=== PATIENT | male | born 1960 | race Caucasian/White ===

== ENCOUNTER 2016-06-26 15:27 | Emergency (ER) ==
[2016-06-26 15:43] VITALS: BP 131/85; TEMP 98.3; BMI 25.7
--- NOTE | 2016-06-26 16:28 | ED.PDOC ---
General ED Provider: Dr. CARLOS A NICE JR Chief Complaint: Chest Wall Injury/Pain Stated Complaint: sittiing at home, ribs made his heart hurt. neurogenic bladder makes heart hurt too. not to stop medication until blood work back, he ran out of Pravastatin. cannot afford to get all of his meds filled 98.3 69 16 96% 131/85 8/10 ETOH: 4 beers, and 1/2 pint whiskey - sitting at home, and he stated left sided chest pain started - worse with deep breath - pain level fluctuates. Pt stated he had several broken ribs on the left side 3 years ago. Time Seen by Physician: 16:28 Mode of Arrival: Ambulance Information Source: Patient Exam Limitations: No limitations Primary Care Provider: SOFIA QUIROGA Nursing and Triage Documentation Reviewed and Agree: No Review of Systems - Review Of Systems Constitutional: Reports: Malaise, Weakness Eyes: Reports: No symptoms Ears, Nose, Mouth, Throat: Reports: No symptoms Respiratory: Reports: No symptoms Cardiac: Reports: Chest pain GI: Reports: No symptoms : Reports: No symptoms Musculoskeletal: Reports: No symptoms Skin: Reports: No symptoms Neurological: Reports: No symptoms Endocrine: Reports: No symptoms Hematologic/Lymphatic: Reports: No symptoms All Other Systems: Other Past Medical History - Past Medical History Endocrine: Reports: Dyslipidemia Cardiovascular: Reports: Hypertension Respiratory: Reports: None Hematological: Reports: None Gastrointestinal: Reports: None Genitourinary: Reports: None, Unknown (urinary retention) Neuro/Psych: Reports: None Musculoskeletal: Reports: Back Pain, Other (KNEE EFFUSION IN PAST) Cancer: Reports: None Other Pertinent Past Medical History: mplanted device rt back for neurogenic bladder - Surgical History General Surgical History: Reports: Other (mplanted device rt back for neurogenic bladder), Unknown - Family History Family History: Reports: Unknown - Social History Smoking Status: Current every day smoker, Heavy tobacco smoker Hx Substance Use: No Alcohol Screening: Heavy - Immunizations Tetanus Shot up to Date: No Physical Exam - Physical Exam Appearance: Ill-appearing, Thin Pain Distress: Moderate Eyes: WARREN, EOMI, Conjunctiva clear ENT: Ears normal, Nose normal, Oropharynx normal Neck: Supple Respiratory: Airway patent, Breath sounds equal, Respirations nonlabored, Rhonchi, Wheezes Cardiovascular: RRR, Pulses normal, No rub, No murmur GI/: Soft, Nontender, No masses, Bowel sounds normal Musculoskeletal: Normal strength, ROM intact, No edema, No calf tenderness ( tender lef chest wall [id number] mid axillary line) Skin: Warm, Dry, Normal color Neurological: Sensation intact, Motor intact, Reflexes intact, Cranial nerves intact, Alert, Oriented Psychiatric: Affect appropriate, Mood appropriate Interpretation - Radiology Interpretation Radiology Interpretation By: Radiologist Radiology Results: No acute changes Exam Interpreted: CXR - EKG Interpretation Time of EKG #1: 16:30 Rate: Normal Rhythm: Sinus Ectopy: None Hammond: NL ST Segment: Normal Critical Care Note - Critical Care Note Total Time (mins): 20 Course - Course Hematology/Chemistry: 06/26/16 16:38 06/26/16 16:47 Orders, Labs, Meds: Lab Review 06/26/16 06/26/16 16:38 16:47 WBC 5.05 RBC 3.86 L Hgb 13.2 L Hct 37.9 L MCV 98.2 H MCH 34.2 H MCHC 34.8 RDW Coeff of Stalin 12.1 Plt Count 214 Immature Gran % (Auto) 0.2 Neut % (Auto) 59.2 Lymph % (Auto) 31.9 Cedar % (Auto) 6.7 Eos % (Auto) 1.2 Baso % (Auto) 0.8 Immature Gran # (Auto) 0.0 Neut # 3.0 Lymph # 1.6 Cedar # 0.3 L Eos # 0.1 Baso # 0.0 D-Dimer 1.03 Sodium 137 Potassium 4.2 Chloride 102 Carbon Dioxide 22 Anion Gap 17.2 BUN 10 Creatinine 0.89 Estimated GFR (MDRD) 89.00 BUN/Creatinine Ratio 11.23 Glucose 82 Calcium 9.5 Total Bilirubin 0.58 AST 111 H ALT 97 H Alkaline Phosphatase 31 L Total Creatine Kinase 218 CK-MB (CK-2) 3.1 CK-MB (CK-2) % 1.45628 Troponin I 0.0100 B-Natriuretic Peptide 23 Total Protein 8.0 Albumin 4.6 Globulin 3.4 Albumin/Globulin Ratio 1.35 Plasma/Serum Alcohol 232.1 H Orders Category Date Time Status EKG-(ED ONLY) Stat CARDIO 06/26/16 16:28 Completed ED IV/MEDIPORT/POWERPORT .ONCE EMERGENCY 06/26/16 16:38 Active B-TYPE NATRIURETIC PEPTIDE Stat LAB 06/26/16 16:47 Completed BLOOD ALCOHOL Stat LAB 06/26/16 16:47 Completed CBC W/ AUTO DIFF Stat LAB 06/26/16 16:38 Completed COMPREHENSIVE METABOLIC PANEL Stat LAB 06/26/16 16:47 Completed CREATINE KINASE Stat LAB 06/26/16 16:47 Completed D-DIMER Stat LAB 06/26/16 16:38 Completed TROPONIN I Stat LAB 06/26/16 16:47 Completed 0.9 % Sodium Chloride [Saline Flush] MEDS 06/26/16 16:38 Discontinued 1 syr IVF PRN PRN Morphine Sulfate [Morphine 2 mg/ml Syringe] MEDS 06/26/16 16:38 Discontinued 2 mg IVP ONCE STA Ondansetron HCl/Pf [Zofran 4 mg/2 ml] MEDS 06/26/16 16:38 Discontinued 4 mg IVP ONCE STA CHEST, 1V AP ONLY Stat RADS 06/26/16 16:38 Completed Medications Discontinued Medications Generic Name Dose Route Start Last Admin Trade Name Freq PRN Reason Stop Dose Admin Morphine Sulfate 2 mg 06/26/16 16:38 06/26/16 16:51 Morphine 2 Mg/Ml Syringe IVP 06/26/16 16:39 2 mg ONCE STA Administration Ondansetron HCl 4 mg 06/26/16 16:38 06/26/16 16:51 Zofran 4 Mg/2 Ml IVP 06/26/16 16:39 4 mg ONCE STA Administration Sodium Chloride 1 syr 06/26/16 16:38 06/26/16 16:52 Saline Flush IVF 1 syr PRN PRN Administration To flush IV Vital Signs: Temp Pulse Resp BP Pulse Ox 06/26/16 15:28 98.3 F 69 16 131/85 96 Departure - Departure Time of Disposition: 17:51 Disposition: HOME SELF-CARE Discharge Problem: Chest wall pain, Alcohol abuse Instructions: Alcohol Use Disorder (ED), Thoracic Pain (ED), How to Stop Smoking (ED) Condition: Fair Pt referred to PMD for follow-up: Yes Additional Instructions: cut back on cigarettes- plan to quit decrease alcohol intake to no more than three beer a day if unable to limit intake need to stop completely better to stop completely recommend AA attendance chest wall pain may use [place] occasionally(not with alcohol) recheck PMD one week return if chest pain shortness of breath or fever over 101.0 Prescriptions: Hydrocodone Bit/Acetaminophen [[place] 5-325] 1 - 2 tab PO Q6HR PRN #12 tablet PRN Reason: pain Allergies/Adverse Reactions: Allergies No Known Allergies Allergy (Verified 04/22/16 09:07) Home Medications: Ambulatory Orders Alprazolam [Xanax] 0.5 mg PO TID PRN 08/18/15 Diltiazem HCl [Cardizem] 60 mg PO Q12HR #60 tablet 04/23/16 Hydrocodone Bit/Acetaminophen [[place] 5-325] 1 - 2 tab PO Q6HR PRN #12 tablet Losartan Potassium 100 mg PO DAILY 06/26/16 Metoprolol Tartrate [Lopressor] 25 mg PO BID 06/26/16 Pravastatin Sodium [Pravachol] 40 mg PO DAILY 06/26/16
[2016-06-26] MEDS ORDERED: ZOFRAN 4 MG/2 ML IVP STA (16:38)
[2016-06-26] MEDS ORDERED: MORPHINE 2 MG/ML SYRINGE IVP STA (16:38)
[2016-06-26 16:50] LABS: BASOPHILS % (AUTO) 0.8 % (0.0-3.0); EOSINOPHILS # (AUTO) 0.1 K/ul (0.0-0.7); EOSINOPHILS % (AUTO) 1.2 % (0.0-7.0); HEMATOCRIT 37.9 % (42.0-52.0); HEMOGLOBIN 13.2 g/dl (14.0-18.0); IMMATURE GRANULOCYTE % (AUTO) 0.2 % (0.0-5.0); LYMPHOCYTES # (AUTO) 1.6 K/uL (0.60-3.4); LYMPHOCYTES % (AUTO) 31.9 (10.0-50.0); MEAN CORPUSCULAR HEMOGLOBIN 34.2 pg (27.0-31.0); MEAN CORPUSCULAR HGB CONC 34.8 (31.8-35.4); MEAN CORPUSCULAR VOLUME 98.2 fl (80.0-94.0); MONOCYTES # (AUTO) 0.3 K/uL (0.4-2.0); MONOCYTES % (AUTO) 6.7 (0-10); NEUTROPHILS % (AUTO) 59.2; PLATELET COUNT 214 10^3/uL (140-440); RED BLOOD COUNT 3.86 10^6/ul (4.70-6.10); WHITE BLOOD COUNT 5.05 K/ul (4.2-10.2)
--- NOTE | 2016-06-26 17:02 | DI ---
EXAM: Single view of the chest. History: Chest pain. Comparison: Chest radiograph 08/18/2015 Findings: Heart size is normal. No focal consolidation. No appreciable pleural fluid and no pneum othorax. Old left-sided rib fractures again noted. Impression: No acute cardiopulmonary process.
[2016-06-26 17:28] LABS: ALBUMIN 4.6 g/dL (3.4-5.0); ALBUMIN/GLOBULIN RATIO 1.35; ANION GAP 17.2; BILIRUBIN,TOTAL 0.58 mg/dL (0.00-1.20); BUN/CREATININE RATIO 11.23; CALCIUM 9.5 mg/dL (8.2-10.2); CREATININE 0.89 mg/dL (0.60-1.10); POTASSIUM 4.2 mmol/L (3.5-5.1); TROPONIN I 0.01 ng/ml (0.0000-0.4000)
[2016-06-26 17:50] LABS: CREATINE KINASE MB 3.1 ng/ml (0.0-3.6)
== END 2016-06-26 18:16 | disposition home or self-care (01) ==
LOC: ED 15:27
DX: R07.9 Chest pain, unspecified (principal); F10.10 Alcohol abuse, uncomplicated; R53.1 Weakness; I10 Essential (primary) hypertension; E78.5 Hyperlipidemia, unspecified; F17.210 Nicotine dependence, cigarettes, uncomplicated; Z79.899 Other long term (current) drug therapy
CPT/HCPCS: 36415; 80053; 80307; 82550; 82553; 83880; 84484; 85025; 85379; 93005; 93010; 96374; 96375; 99283

== ENCOUNTER 2017-02-08 10:38 | Inpatient (IN) ==
[2017-02-08 10:43] VITALS: BMI 24.9
[2017-02-08] MEDS ORDERED: SODIUM CHLORIDE 1,000 ML IV STA (11:02)
[2017-02-08 11:41] LABS: ALBUMIN 3.8 g/dL (3.4-5.0); ALBUMIN/GLOBULIN RATIO 0.84; ANION GAP 24.1; BILIRUBIN,TOTAL 1.05 mg/dL (0.00-1.20); BUN/CREATININE RATIO 12.5; CALCIUM 10.2 mg/dL (8.2-10.2); CREATININE 1.36 mg/dL (0.60-1.10); POTASSIUM 5.1 mmol/L (3.5-5.1); TOTAL PROTEIN 8.3 g/dL (6.4-8.2)
--- NOTE | 2017-02-08 12:03 | DI ---
EXAM: CHEST FRONTAL AND LATERAL VIEWS HISTORY: Cough. COMPARISON: 06/26/2016 FINDINGS: Normal heart size. Mild hyperinflation. Old left-sided rib deformities appear stable. N o acute infiltrates are seen. No vascular congestion. There is no consolidation, visible pleural f luid or pneumothorax. IMPRESSION: No acute cardiopulmonary process.
--- NOTE | 2017-02-08 12:11 | CT ---
EXAM: CT ABDOMEN AND PELVIS HISTORY: Abdominal pain, constipation and difficulty urinating TECHNIQUE: CT abdomen and pelvis without intravenous contrast. Images were reconstructed using 5 m m section thickness. Reformations were prepared. COMPARISON: 01/12/2016 FINDINGS: The urinary bladder at its maximum axial dimension is 10.5 x 13.4 cm. Greatest coronal dimension of the urinary bladder is 20.3 cm. Even at this level of distension, the wall is obviously thickened circumferentially. The prostate does not appear significantly enlarged. No obvious urinary bladder calculi or trabeculation/diverticula. No gross ureteral calculus. There is moderately severe fatty infiltration of the liver without hepatomegaly or focal lesion. Sp kurtis within normal limits. Gallbladder is grossly unremarkable. No pancreatic pathology or adrenal mass. Diagnostic limitations exist without including contrast enhanced images. No definite renal c ortical masses. There is subtle right perinephric fat stranding. No definite hydronephrosis. The ureters are poorly seen. Moderate atherosclerotic disease. No gastric distension. Normal appendix . Bowel gas pattern is nonobstructive. There is no ascites. No ventral abdominal wall hernia. [place] manuel reveal no acute abnormalities. Lung bases are free of acute infiltrate. No pneumoperitoneum. IMPRESSION: 1. Gross distension of the urinary bladder suggesting outlet obstruction or conceivably neuromuscul ar dysfunction. See first paragraph of report. Decompression is recommended. 2. Right perinephric fat stranding is mild. Correlate clinically for any evidence of pyelonephriti s. 3. Moderately severe fatty infiltration of the liver. 4. Moderate atherosclerotic disease.
[2017-02-08 12:27] LABS: BILIRUBIN,URINE Negative (NEGATIVE); KETONES,URINE Negative (NEGATIVE); LEUKOCYTE ESTERASE ,URINE 3+ (NEGATIVE); NITRITE,URINE Positive (NEGATIVE); PH,URINE 5.5 (5-9); PROTEIN,URINE 1+ (NEGATIVE); URINE, BLOOD 2+ (NEGATIVE)
[2017-02-08 12:29] LABS: ADD URINE MICROSCOPIC YES
[2017-02-08 12:32] LABS: BACTERIA,URINE 1+ (NOT PRESENT)
[2017-02-08] MEDS ORDERED: ZOFRAN 4 MG/2 ML IVP STA (12:40)
[2017-02-08] MEDS ORDERED: MORPHINE 4 MG/ML SYRINGE IVP STA (12:40)
[2017-02-08] MEDS ORDERED: XANAX PO PRN ×2 (12:48→13:18)
[2017-02-08 12:52] LABS: BASOPHILS # (AUTO) 0.1 K/uL (0-0.2); BASOPHILS % (AUTO) 0.5 % (0.0-3.0); EOSINOPHILS % (AUTO) 0.1 % (0.0-7.0); HEMOGLOBIN 15.6 g/dl (14.0-18.0); IMMATURE GRANULOCYTE % (AUTO) 0.7 % (0.0-5.0); LYMPHOCYTES # (AUTO) 0.6 K/uL (0.60-3.4); LYMPHOCYTES % (AUTO) 4.1 (10.0-50.0); MEAN CORPUSCULAR HEMOGLOBIN 35.4 pg (27.0-31.0); MEAN CORPUSCULAR HGB CONC 38.5 (31.8-35.4); MEAN CORPUSCULAR VOLUME 91.8 fl (80.0-94.0); MONOCYTES # (AUTO) 1.7 K/uL (0.4-2.0); MONOCYTES % (AUTO) 11.6 (0-10); NEUTROPHILS # (AUTO) 12.4 K/ul (2.0-6.9); PLATELET COUNT 125 10^3/uL (140-440); RED BLOOD COUNT 4.41 10^6/ul (4.70-6.10); WHITE BLOOD COUNT 14.99 K/ul (4.2-10.2)
[2017-02-08 12:55] LABS: HEMATOCRIT 40.5 % (42.0-52.0)
[2017-02-08] MEDS ORDERED: SODIUM CHLORIDE 1,000 ML IV SCH (13:00)
[2017-02-08] MEDS: SODIUM CHLORIDE 1,000 ML IV SCH (13:42)
[2017-02-08] MEDS: ROCEPHIN 1 GM in SODIUM CHLORIDE 50 ML IV SCH (13:49)
--- NOTE | 2017-02-08 14:34 | CT ---
EXAM: CT chest without contrast. HISTORY: Cough. COMPARISON: 04/22/2016 CT. Radiograph earlier the same day. TECHNIQUE: Multiple axial images of the chest were obtained without intravenous contrast. Images w ere reformatted in the sagittal and coronal planes. FINDINGS: Evaluation for lymphadenopathy is limited by lack of intravenous contrast. Calcified med iastinal, hilar lymph nodes are present. Heart size is normal. There is no pericardial effusion. Mild atherosclerotic calcifications are present. Numerous calcified nodules are seen in both lungs. Clustered noncalcified nodules seen in the left lower lobe on axial images 36-38 which are new with the largest individual nodule measuring no great er than 0.4 cm. Lungs are otherwise clear without pleural effusion or pneumothorax. Limited images of the upper abdomen demonstrate fatty infiltration of the liver. Multiple old left- sided rib fractures noted. IMPRESSION: Clustered left lower lobe nodules are most likely infectious or inflammatory. Follow up chest CT in 3 months recommended for reassessment.
[2017-02-08] MEDS ORDERED: MORPHINE 2 MG/ML SYRINGE IVP PRN (15:10)
[2017-02-08] MEDS: NICODERM 21 MG TD SCH (15:54)
[2017-02-08] MEDS: LOPRESSOR PO SCH (20:25)
[2017-02-08] MEDS: CARDIZEM PO SCH (20:25)
[2017-02-09 05:30] LABS: BASOPHILS # (AUTO) 0.1 K/uL (0-0.2); BASOPHILS % (AUTO) 0.6 % (0.0-3.0); EOSINOPHILS % (AUTO) 0.2 % (0.0-7.0); HEMOGLOBIN 13.8 g/dl (14.0-18.0); IMMATURE GRANULOCYTE % (AUTO) 0.8 % (0.0-5.0); LYMPHOCYTES # (AUTO) 1.2 K/uL (0.60-3.4); LYMPHOCYTES % (AUTO) 13.7 (10.0-50.0); MEAN CORPUSCULAR HEMOGLOBIN 34.4 pg (27.0-31.0); MEAN CORPUSCULAR HGB CONC 36.3 (31.8-35.4); MEAN CORPUSCULAR VOLUME 94.8 fl (80.0-94.0); MONOCYTES # (AUTO) 1.4 K/uL (0.4-2.0); MONOCYTES % (AUTO) 16.4 (0-10); NEUTROPHILS # (AUTO) 5.8 K/ul (2.0-6.9); NEUTROPHILS % (AUTO) 68.3; PLATELET COUNT 195 10^3/uL (140-440); RED BLOOD COUNT 4.01 10^6/ul (4.70-6.10); WHITE BLOOD COUNT 8.52 K/ul (4.2-10.2)
[2017-02-09 05:57] LABS: ALBUMIN 3.3 g/dL (3.4-5.0); ALBUMIN/GLOBULIN RATIO 0.89; ANION GAP 21.7; BILIRUBIN,TOTAL 0.51 mg/dL (0.00-1.20); BUN/CREATININE RATIO 25.3; CALCIUM 10.1 mg/dL (8.2-10.2); CREATININE 0.83 mg/dL (0.60-1.10); POTASSIUM 4.7 mmol/L (3.5-5.1)
[2017-02-09] MEDS: LOPRESSOR PO SCH ×2 (08:41→20:13)
[2017-02-09] MEDS: COZAAR PO SCH (08:41)
[2017-02-09] MEDS: CARDIZEM PO SCH ×2 (08:41→20:13)
[2017-02-09] MEDS: ROCEPHIN 1 GM in SODIUM CHLORIDE 50 ML IV SCH (08:41)
[2017-02-09] MEDS: PRAVACHOL PO SCH (08:42)
[2017-02-09] MEDS: NICODERM 21 MG TD SCH (08:44)
[2017-02-09] MEDS: SODIUM CHLORIDE 1,000 ML IV SCH (18:23)
[2017-02-10 04:42] LABS: BASOPHILS # (AUTO) 0.1 K/uL (0-0.2); BASOPHILS % (AUTO) 1.1 % (0.0-3.0); EOSINOPHILS # (AUTO) 0.1 K/ul (0.0-0.7); EOSINOPHILS % (AUTO) 1.4 % (0.0-7.0); HEMATOCRIT 38.5 % (42.0-52.0); HEMOGLOBIN 13.9 g/dl (14.0-18.0); IMMATURE GRANULOCYTE % (AUTO) 1.7 % (0.0-5.0); LYMPHOCYTES # (AUTO) 1.9 K/uL (0.60-3.4); LYMPHOCYTES % (AUTO) 30.1 (10.0-50.0); MEAN CORPUSCULAR HEMOGLOBIN 34.5 pg (27.0-31.0); MEAN CORPUSCULAR HGB CONC 36.1 (31.8-35.4); MEAN CORPUSCULAR VOLUME 95.5 fl (80.0-94.0); NEUTROPHILS # (AUTO) 3.2 K/ul (2.0-6.9); NEUTROPHILS % (AUTO) 49.7; PLATELET COUNT 231 10^3/uL (140-440); RED BLOOD COUNT 4.03 10^6/ul (4.70-6.10); WHITE BLOOD COUNT 6.38 K/ul (4.2-10.2)
[2017-02-10 05:02] LABS: ALBUMIN 3.5 g/dL (3.4-5.0); ALBUMIN/GLOBULIN RATIO 0.95; ANION GAP 18.4; BILIRUBIN,TOTAL 0.42 mg/dL (0.00-1.20); CALCIUM 10.5 mg/dL (8.2-10.2); POTASSIUM 4.4 mmol/L (3.5-5.1); TOTAL PROTEIN 7.2 g/dL (6.4-8.2)
[2017-02-10] MEDS ORDERED: ROCEPHIN 1 GM in SODIUM CHLORIDE 50 ML IV SCH (07:30)
[2017-02-10] MEDS: NICODERM 21 MG TD SCH (08:26)
[2017-02-10] MEDS: CARDIZEM PO SCH (08:27)
[2017-02-10] MEDS: PRAVACHOL PO SCH (08:27)
[2017-02-10] MEDS: LOPRESSOR PO SCH (08:28)
[2017-02-10] MEDS: COZAAR PO SCH (08:28)
[2017-02-10 09:42] VITALS: BP 130/82; TEMP 97.8
[2017-02-10] MEDS ORDERED: AMPICILLIN PO STA (11:52)
--- NOTE | 2017-02-12 14:08 | ED.PDOC ---
General ED Provider: Dr. MARY LOU CARRIZALES Chief Complaint: Urinary Problem Stated Complaint: dysuria Time Seen by Physician: 10:45 (staff present at bedside ) Mode of Arrival: Walk-In Information Source: Patient Exam Limitations: No limitations Primary Care Provider: SOFIA QUIROGA Nursing and Triage Documentation Reviewed and Agree: Yes Complaint Exam - Complaint/Exam Patient Complains of: Reports: Dysuria Onset/Duration: 2 days Symptoms Are: Still present Timing: Intermittent Initial Severity: Moderate Current Severity: Mild Location of Pain: Reports: Flank Character: Reports: Colicky, Burning, Cramping Aggravating: Reports: Voiding, Straining Alleviating: Reports: None Associated Signs and Symptoms: Reports: Dysuria, Nausea, Decreased urine output , Decreased activity. Denies: Diaphoresis, Back pain, Fever, Hematuria, Constipation, Blood in stool, Rectal pain, Appetite change, Vomiting, Penile swelling, Penile discharge, Increased urine frequency, Increased thirst, Lethargy, Scrotal pain, Scrotal swelling, Abdominal Pain Related History: Reports: Similar episode Testicular Torsion Risk Factors: Reports: None Surgical Obstruction Risk Factors: Reports: None Related Surgical History: Reports: None Abdominal Findings: Present: None Differential Diagnoses: UTI Review of Systems - Review Of Systems Constitutional: Reports: Malaise, Weakness Eyes: Reports: No symptoms Ears, Nose, Mouth, Throat: Reports: No symptoms Respiratory: Reports: No symptoms Cardiac: Reports: No symptoms GI: Reports: No symptoms : Reports: Dysuria, Flank pain Musculoskeletal: Reports: No symptoms Skin: Reports: No symptoms Neurological: Reports: No symptoms Endocrine: Reports: No symptoms Hematologic/Lymphatic: Reports: No symptoms All Other Systems: Reviewed and Negative Past Medical History - Past Medical History Endocrine: Reports: Dyslipidemia Cardiovascular: Reports: Hypertension Respiratory: Reports: None Hematological: Reports: None Gastrointestinal: Reports: None Genitourinary: Reports: None, Unknown (urinary retention) Neuro/Psych: Reports: None Musculoskeletal: Reports: Back Pain, Other (KNEE EFFUSION IN PAST) Cancer: Reports: None Other Pertinent Past Medical History: mplanted device rt back for neurogenic bladder - Surgical History General Surgical History: Reports: Other (mplanted device rt back for neurogenic bladder), Unknown - Family History Family History: Reports: Unknown - Social History Smoking Status: Current every day smoker, Heavy tobacco smoker Hx Substance Use: No Alcohol Screening: Heavy - Immunizations Tetanus Shot up to Date: No Physical Exam - Physical Exam Appearance: Well-appearing, No pain distress, Well-nourished Ill-appearing: Moderate Pain Distress: Mild Eyes: WARREN, EOMI, Conjunctiva clear ENT: Ears normal, Nose normal, Oropharynx normal Respiratory: Rhonchi Cardiovascular: RRR, Pulses normal, No rub, No murmur GI/: Soft, Nontender, No masses, Bowel sounds normal, No Organomegaly, Tender (flanks ) Musculoskeletal: Normal strength, ROM intact, No edema, No calf tenderness Skin: Warm, Dry, Normal color Neurological: Sensation intact, Motor intact, Reflexes intact, Cranial nerves intact, Alert, Oriented Psychiatric: Affect appropriate, Mood appropriate Physician Notification - Case Discussed Physician Notified: pmd Critical Care Note - Critical Care Note Total Time (mins): 0 Course - Course Hematology/Chemistry: 02/10/17 04:41 02/10/17 04:41 Orders, Labs, Meds: Lab Review 02/08/17 02/08/17 11:15 12:10 WBC 14.99 H RBC 4.41 L Hgb 15.6 Hct 40.5 L MCV 91.8 MCH 35.4 H MCHC 38.5 H RDW Coeff of Stalin 11.5 L Plt Count 125 L Immature Gran % (Auto) 0.7 Neut % (Auto) 83.0 Lymph % (Auto) 4.1 L Crowley % (Auto) 11.6 H Eos % (Auto) 0.1 Baso % (Auto) 0.5 Immature Gran # (Auto) 0.1 Neut # 12.4 H Lymph # 0.6 Crowley # 1.7 Eos # 0.0 Baso # 0.1 Sodium 122 L Potassium 5.1 Chloride 84 L Carbon Dioxide 19 L Anion Gap 24.1 BUN 17 Creatinine 1.36 H Estimated GFR (MDRD) 54.00 BUN/Creatinine Ratio 12.50 Glucose 103 H Lactic Acid 13.7 Calcium 10.2 Total Bilirubin 1.05 AST 78 H ALT 53 Alkaline Phosphatase 68 Total Protein 8.3 H Albumin 3.8 Globulin 4.5 Albumin/Globulin Ratio 0.84 Procalcitonin 0.37 Urine Color Yellow Urine Clarity Turbid Urine pH 5.5 Ur Specific Gustavus <=1.005 Urine Protein 1+ Urine Glucose (UA) Negative Urine Ketones Negative Urine Blood 2+ Urine Nitrite Positive Urine Bilirubin Negative Urine Urobilinogen 0.2 Ur Leukocyte Esterase 3+ Urine Microscopic WBC Tntc Ur Squamous Epith Cells Not present Urine Bacteria 1+ Orders Category Date Time Status ADMIT PATIENT INPATIENT .TO [facility] (MONITORED BED) ADMISSION 02/08/17 12: 46 Active EKG-(IP & OP ONLY) DAILY CARDIO 02/09/17 06:00 Completed EKG-(IP & OP ONLY) DAILY CARDIO 02/10/17 06:00 Completed ACTIVITY .Complete BR CARE 02/08/17 12:46 Completed Neuro Check [NEUROLOGICAL CHECKS] Q4HR CARE 02/08/17 12:48 Inactive TELEMETRY MONITORING TELE CARE 02/08/17 12:47 Active VITAL SIGNS Q8HR CARE 02/08/17 12:46 Completed REGULAR DIET DIETARY 02/08/17 Breakfast Completed ED IV/MEDIPORT/POWERPORT .ONCE EMERGENCY 02/08/17 11:01 Active BLOOD CULTURE Stat LAB 02/08/17 11:15 Results CBC W/ AUTO DIFF DAILY@0600 LAB 02/09/17 05:00 Completed CBC W/ AUTO DIFF DAILY@0600 LAB 02/10/17 04:41 Completed CBC W/ AUTO DIFF Stat LAB 02/08/17 11:15 Completed COMPREHENSIVE METABOLIC PANEL DAILY@0600 LAB 02/09/17 05:00 Completed COMPREHENSIVE METABOLIC PANEL DAILY@0600 LAB 02/10/17 04:41 Completed COMPREHENSIVE METABOLIC PANEL Stat LAB 02/08/17 11:15 Completed LACTIC ACID Stat LAB 02/08/17 11:15 Completed PROCALCITONIN Stat LAB 02/08/17 11:15 Completed URINALYSIS C & S IF INDICATED Stat LAB 02/08/17 12:10 Completed URINE CULTURE Stat LAB 02/08/17 12:10 Completed 0.9 % Sodium Chloride [Saline Flush] MEDS 02/08/17 11:01 Discontinued 1 syr IVF PRN PRN Ceftriaxone Sodium [Rocephin] 1 gm MEDS 02/08/17 13:30 Discontinued 0.9 % Sodium Chloride [Sodium Chloride] 50 ml IV DAILY Diltiazem HCl [Cardizem] MEDS 02/08/17 21:00 Discontinued 60 mg PO Q12HR Losartan Potassium [Cozaar] MEDS 02/09/17 09:00 Discontinued 100 mg PO DAILY Metoprolol Tartrate [Lopressor] MEDS 02/08/17 21:00 Discontinued 25 mg PO BID Morphine Sulfate [Morphine 4 mg/ml Syringe] MEDS 02/08/17 12:40 Discontinued 4 mg IVP ONCE STA Ondansetron HCl/Pf [Zofran 4 mg/2 ml] MEDS 02/08/17 12:40 Discontinued 4 mg IVP ONCE STA Pravastatin Sodium [Pravachol] MEDS 02/09/17 09:00 Discontinued 40 mg PO DAILY Sodium Chloride 0.9% [Sodium Chloride] 1,000 ml MEDS 02/08/17 13:00 Discontinued IV 75 mls/hr Sodium Chloride 0.9% [Sodium Chloride] 1,000 ml MEDS 02/08/17 11:02 Discontinued IV BOLUS CHEST, 2 VIEWS PA & LAT Stat RADS 02/08/17 11:[address] ABDOMEN/PELVIS WO CONTRAST Stat RADS 02/08/17 11:01 Completed Medications Discontinued Medications Generic Name Dose Route Start Last Admin Trade Name Freq PRN Reason Stop Dose Admin Alprazolam 0.5 mg 02/08/17 13:18 02/09/17 20:13 Xanax PO 0.5 mg TID PRN Administration ANXIETY Ampicillin 1,000 mg 02/10/17 11:52 02/10/17 12:02 Ampicillin PO 02/10/17 11:53 1,000 mg ONCE STA Administration Diltiazem HCl 60 mg 02/08/17 21:00 02/10/17 08:27 Cardizem PO 60 mg Q12HR NATIVIDAD Administration Sodium Chloride 1,000 mls @ 1,000 mls/hr 02/08/17 11:02 02/08/17 11:12 Sodium Chloride IV 02/08/17 12:01 1,000 mls/hr BOLUS STA Administration Sodium Chloride 1,000 mls @ 75 mls/hr 02/08/17 13:00 02/08/17 15:58 Sodium Chloride IV Not Given .[id number] NATIVIDAD Ceftriaxone Sodium 1 gm/ 50 mls @ 75 mls/hr 02/08/17 13:30 02/09/17 08:41 Sodium Chloride IV 75 mls/hr DAILY NATIVIDAD Administration Sodium Chloride 1,000 mls @ 40 mls/hr 02/08/17 13:23 02/09/17 18:23 Sodium Chloride IV Not Given .Q25H NATIVIDAD Ceftriaxone Sodium 1 gm/ 50 mls @ 75 mls/hr 02/10/17 07:30 02/10/17 07:38 Sodium Chloride IV 75 mls/hr DAILY NATIVIDAD Administration Losartan Potassium 100 mg 02/09/17 09:00 02/10/17 08:28 Cozaar PO 100 mg DAILY NATIVIDAD Administration Metoprolol Tartrate 25 mg 02/08/17 21:00 02/10/17 08:28 Lopressor PO 25 mg BID NATIVIDAD Administration Morphine Sulfate 4 mg 02/08/17 12:40 02/08/17 12:56 Morphine 4 Mg/Ml Syringe IVP 02/08/17 12:41 4 mg ONCE STA Administration Morphine Sulfate 2 mg 02/08/17 15:10 02/08/17 18:45 Morphine 2 Mg/Ml Syringe IVP 2 mg Q6H PRN Administration abdominal pain / groin pain Nicotine 1 patch 02/08/17 15:30 02/10/17 08:26 Nicoderm 21 Mg TD 1 patch DAILY NATIVIDAD Administration Ondansetron HCl 4 mg 02/08/17 12:40 02/08/17 12:52 Zofran 4 Mg/2 Ml IVP 02/08/17 12:41 4 mg ONCE STA Administration Pravastatin Sodium 40 mg 02/09/17 09:00 02/10/17 08:27 Pravachol PO 40 mg DAILY NATIVIDAD Administration Sodium Chloride 1 syr 02/08/17 11:01 02/08/17 11:12 Saline Flush IVF 1 syr PRN PRN Administration To flush IV Sodium Chloride 1 syr 02/09/17 21:00 02/10/17 04:51 Saline Flush IVF 1 syr Q8HR NATIVIDAD Administration Vital Signs: Temp Pulse Resp BP Pulse Ox 02/08/17 10:38 98.2 F 114 H 18 96/65 97 Departure - Departure Time of Disposition: 11:00 Disposition: ADMITTED INPATIENT Discharge Problem: Urinary tract infectious disease Condition: Good Pt referred to PMD for follow-up: Yes (admitted) Allergies/Adverse Reactions: Allergies No Known Allergies Allergy (Verified 02/08/17 10:43) Home Medications: Ambulatory Orders Alprazolam [Xanax] 0.5 mg PO TID PRN 08/18/15 Diltiazem HCl [Cardizem] 60 mg PO Q12HR #60 tablet 04/23/16 Losartan Potassium 100 mg PO DAILY 06/26/16 Metoprolol Tartrate [Lopressor] 25 mg PO BID 06/26/16 Pravastatin Sodium [Pravachol] 40 mg PO DAILY 06/26/16 Ampicillin Trihydrate [Ampicillin] 500 mg PO BID #14 capsule 02/10/17
--- NOTE | 2017-02-20 12:57 | HP ---
DATE OF SERVICE: 02/08/17 CHIEF COMPLAINT: Urinary tract problem and right flank pain. HISTORY OF PRESENT ILLNESS: This is a 57 year old male who has been having problems with urination and has been using the self catheterization. He started having burning and frequency of urination and right flank pain. The patient has a chronic problem with the bladder, neurogenic bladder for which the patient has been going to [facility] also. As the patient's right groin pain and flank pain is getting worse, he came to the emergency room and was seen by Dr. Franz. White count was 14,000, sodium was 122. Urine showed 2 + blood, nitrites positive, leukocyte esterase positive. At that time, Dr. Franz admitted the patient to the hospital for the acute pyelonephritis with CT scan showing the perinephric stranding on the right side and urinary retention and hyponatremia. REVIEW OF SYSTEMS: CONSTITUTIONAL: Weakness, tiredness. No fever, no chills. HEENT: Normal. ENDOCRINE: No weight gain; no weight loss. CVS: No chest pain. No PND, no orthopnea. No shortness of breath. No PND, no orthopnea. RESPIRATORY: No cough, no congestion. No hemoptysis. GI: Nausea, no vomiting. No abdominal pain. No melena. : Difficulty urinating. Right flank pain. No hematuria. No polyuria. MUSCULOSKELETAL: No joint swelling. PSYCHIATRIC: Not anxious. No depression. No suicidal thoughts. No homicidal thoughts. SKIN: Intact, no open lesions. PAST MEDICAL HISTORY: CHRONIC NEUROGENIC BLADDER BEING EVALUATED BY THE UROLOGIST AT [place] CORONARY ARTERY DISEASE, STATUS POST STENTING DYSLIPIDEMIA HYPERTENSION HEADACHES CHRONIC OBSTRUCTIVE PULMONARY DISEASE CONTINUED NICOTINE USE ALMOST TWO PACKS ANXIETY SUBSTANCE USE DISORDER AND ALCOHOL PAST SURGICAL HISTORY: NEUROGENIC BLADDER WITH STIMULATOR IMPLANTATION PERSONAL HISTORY: Smokes. and lives with his . FAMILY HISTORY: Significant for myocardial infarction. MEDICATIONS: Xanax, Cardizem, Lopressor, Pravachol and Losartan. ALLERGIES: No known drug allergies. PHYSICAL EXAMINATION: GENERAL: Sick looking man lying in the bed in distress from the abdominal discomfort, as the patient has an over distended bladder. V/S: Blood pressure is 96/65, respiratory rate 18, heart rate 114, saturation 97 on room air. Temperature 98.2. HEENT: Atraumatic, normocephalic. No scleral icterus. Mucosa dry. NECK: Supple. No JVD, no bruit. No lymphadenopathy. No thyromegaly. HEART: S1, S2 normal. No murmur. No cyanosis or clubbing. No ascites. LUNGS: Clear to auscultation. No rales or rhonchi. ABDOMEN: Right flank pain. Bowel sounds are active. CVA tenderness positive. No rigidity or guarding. EXTREMITIES: No cyanosis, clubbing or pedal edema. MUSCULOSKELETAL: Normal joints, no swelling. NEUROLOGIC: The patient is awake and alert. SKIN: Intact; no open lesions. LYMPHATIC: No lymph nodes palpable. LABS: White count 14.199, hemoglobin 15.6, hematocrit 40.5, platelet count 125 , sodium 122, potassium 5.1, chloride 84, bicarb 19, BUN 17, creatinine 1.36. Urine is positive for the leukocyte esterase and nitrites. Protein positive. Cloudy, turbid. ASSESSMENT: 1. ACUTE RIGHT PYELONEPHRITIS 2. URINARY RETENTION 3. NEUROGENIC BLADDER 4. CORONARY ARTERY DISEASE, STATUS POST STENTS 5. DYSLIPIDEMIA 6. CHRONIC OBSTRUCTIVE PULMONARY DISEASE 7. CONTINUED NICOTINE USE 8. DJD OF THE SPINE PLAN: 1. Admit the patient to the regular floor. 2. CBC, CMP today and daily. 3. Cardiac enzymes and Troponins. 4. IV fluids at 40 ml per hour. 5. Rocephin 1 gram daily. 6. Morphine 2 mg every [address] the Lopez catheter and Lopez catheter care. TIME SPENT: More than 70 minutes today MTDD
--- NOTE | 2017-02-20 13:27 | PN ---
DATE OF SERVICE: 02/09/17 SUBJECTIVE: 57 year old male admitted with right acute pyelonephritis. The patient has a chronic history of neurogenic bladder. Urine grew gram positive cocci. No fever since admission. He is feeling somewhat better. REVIEW OF SYSTEMS: CONSTITUTIONAL: No fever, no chills. HEENT: Normal. ENDOCRINE: No weight gain, no weight loss. CVS: No angina symptoms. No CHF symptoms. No palpitations. No atypical chest pain for CAD. No shortness of breath. No PND, no orthopnea. RESPIRATORY: No cough, no hemoptysis. GI: No nausea, no vomiting. No abdominal pain. : No hematuria. No polyuria. MUSCULOSKELETAL:. No joint swelling. PSYCHIATRIC: Not anxious. No depression. No suicidal thoughts. No homicidal thoughts. SKIN: Intact. No rash. PHYSICAL EXAMINATION: GENERAL: Sick looking male sitting in the bed and not in any distress. V/S: Blood pressure 131/78, respiratory rate 20, heart rate 92, temperature 98.5 , saturation 97. HEENT: Normocephalic, atraumatic. Mucosa dry. Pallor positive. No icterus. NECK: Supple. No JVD, no carotid bruit. No lymphadenopathy. LUNGS: Decreased and clear. No rales or rhonchi. HEART: S1, S2 normal. No S3. No murmur, gallop or regurgitation. ABDOMEN: Right flank pain present. Bowel sounds active. No rigidity. No rebound or guarding. Right CVA tenderness is present. EXTREMITIES: No clubbing, cyanosis or pedal edema. MUSCULOSKELETAL: No joint swelling. NEUROLOGIC: Awake, alert, oriented times three. No focal deficit. : The patient has a Fields catheter in place. LYMPHATIC: No lymph nodes palpable. SKIN: Intact. LABS: White count is 8.52, hemoglobin 13.8, hematocrit 38.0, platelet count is 195. Sodium 135, potassium 4.7, chloride 95, bicarb 23, BUN 21, creatinine 0.83. ASSESSMENT: 1. RIGHT SIDED ACUTE PYELONEPHRITIS 2. NEUROGENIC BLADDER ON FIELDS CATHETER RIGHT NOW 3. COPD 4. HYPOXEMIA 5. CORONARY ARTERY DISEASE 6. DYSLIPIDEMIA 7. NICOTINE USE PLAN: 1. Continue the Rocephin and Zofran. 2. IV fluids at 40 ml per hour. 3. Morphine for the pain. 4. Daily I & O's. 5. Will follow up with the patient in daily rounds. TIME SPENT: More than 30 minutes MTDD
--- NOTE | 2017-02-21 10:05 | DS ---
DATE OF SERVICE: 02/10/17 FINAL DIAGNOSIS: 1. URINARY TRACT INFECTION STREP AGALACTIAE 2. NEUROGENIC BLADDER 3. URINARY RETENTION ON FIELDS 4. HISTORY OF SELF CATHETERIZATION 5. CHRONIC OBSTRUCTIVE PULMONARY DISEASE 6. CORONARY ARTERY DISEASE 7. NICOTINE USE 8. ANEMIA PLAN: 1. Discharge the patient home. 2. Amoxicillin 500 mg twice a day for seven more days. 3. Continue home medications. HOME MEDICATIONS AT DISCHARGE: Diltiazem 60 mg every 12 hours Xanax 0.25 mg three times daily Losartan 100 mg p.o. daily Lopressor 25 mg twice daily Pravachol 40 mg p.o. daily DIET INSTRUCTIONS: Cardiac and healthy. ACTIVITY: As much as tolerated. SMOKING: Advised to quit smoking. DISEASE SPECIFIC EDUCATION: About the urinary retention, UTI, antibiotic use and diarrhea were discussed with the patient on multiple occasions. HOSPITAL COURSE: aDrio [facility] who is a 57 year old male with a history of chronic urinary retention, neurogenic bladder and he has a stimulator that was also placed. He developed urinary problems so he came to the emergency room with right flank pain, feverish and chills and was found to have a UTI. He was admitted to the hospital and started on the Rocephin 1 gram twice daily. Fields catheter has to be placed because the patient has urinary retention, which did resolve the patient's abdominal discomfort with the enlarged bladder. The patient did have right flank pain. No fever. White count came down from 14.9 to 8.5 and then 6.38. Hemoglobin was steady. BUN and creatinine was steady. Meanwhile, the urine grew strep agalactiae and was sensitive for the Ampicillin. The patient was requested to be discharged, as the patient's does not walk and she needs help at home. At that time as the patient was afebrile and the white count is normal and the strep agalactiae was there, so the patient was started on the Ampicillin 500 mg twice a day for seven more days and sent the patient home. The patient's Fields catheter was removed. The patient has a history of chronic self catheterization and he will be followed up in the [facility] within four to five days and then we will make sure he goes to the urologist. TIME SPENT: MORE THAN 55 MINUTES TODAY PIOTR
== END 2017-02-10 12:19 | disposition home or self-care (01) | DRG 690 ==
LOC: ED 10:38 → MEDSURG A 12:50
PROVIDERS: ADMIT Emergency Medicine; ATTEND Emergency Medicine
DX: N10 Acute pyelonephritis (principal); B95.4 Other streptococcus as the cause of diseases classified elsewhere; N31.2 Flaccid neuropathic bladder, not elsewhere classified; N32.89 Other specified disorders of bladder; R33.9 Retention of urine, unspecified; R09.02 Hypoxemia; I25.10 Atherosclerotic heart disease of native coronary artery without angina pectoris; J44.9 Chronic obstructive pulmonary disease, unspecified; D64.9 Anemia, unspecified; F17.210 Nicotine dependence, cigarettes, uncomplicated; Z96.0 Presence of urogenital implants; Z79.899 Other long term (current) drug therapy; Z16.29 Resistance to other single specified antibiotic
CPT/HCPCS: 36415; 80053; 81001; 83605; 84145; 85025; 87040; 87086; 87186; 93005; 93010; 96361; 96374; 96375; 99284

== ENCOUNTER 2017-11-13 12:38 | Emergency (ER) | payer OTHER ==
[2017-11-13 12:47] VITALS: BP 163/96; TEMP 98.8; BMI 22.4
[2017-11-13] MEDS ORDERED: SODIUM CHLORIDE 1,000 ML IV STA (13:12)
[2017-11-13] MEDS ORDERED: MORPHINE 2 MG/ML SYRINGE IVP STA (13:13)
[2017-11-13] MEDS ORDERED: ZOFRAN 4 MG/2 ML IVP STA (13:13)
--- NOTE | 2017-11-13 13:24 | ED.PDOC ---
General ED Provider: Dr. MARY LOU CARRIZALES Chief Complaint: Non-specific Complaint Stated Complaint: Pt with history of HTN, bacteremia and neurogentic bladder presents to the ED with c/o generalized weakness for the past 2 weeks. Pt states that he did not drink much water. Pt states that he used to drink 5 cups of coffee a day, but he did not have coffee for the past 5 days upon the recommendation of his PCP. Pt denies WU, fever, chill or recent injury. Time Seen by Physician: 13:00 Mode of Arrival: Walk-In Information Source: Patient Exam Limitations: No limitations Primary Care Provider: SOFIA QUIROGA Nursing and Triage Documentation Reviewed and Agree: Yes Reviewed sepsis parameters & appropriate labs ordered?: Yes System Inflammatory Response Syndrome: Not Applicable Sepsis Protocol: For patient's 13 years and over: Temp is 96.8 and below OR 101 and greater Pulse >90 BPM Resp >20/minute Acutely Altered Mental Status Are patient's symptoms suggestive of a new infection, such as: -Pneumonia -Skin, Soft Tissue -Endocarditis -UTI -Bone, Joint Infection -Implantable Device -Acute Abdominal Infection -Wound Infection -Meningitis -Blood Stream Catheter Infection -Unknown Complaint Exam - Complaint/Exam Onset/Duration: 2 weeks Symptoms Are: Worse Timing: Constant Initial Severity: Moderate Current Severity: Moderate Location of Pain: Reports: None, Diffuse Character: Reports: Dull Aggravating: Reports: None Alleviating: Reports: None Associated Signs and Symptoms: Reports: Back pain. Denies: Diaphoresis, Fever, Hematuria, Dysuria, Constipation, Blood in stool, Rectal pain, Appetite change, Nausea, Vomiting, Penile swelling, Penile discharge, Decreased urine output, Increased urine frequency, Increased thirst, Decreased activity, Lethargy, Scrotal pain, Scrotal swelling Related History: Reports: Similar episode (history of neurogenic bladder and currently the device of stimulating to urinate did not work and he often used self-catherization to urinate ) Testicular Torsion Risk Factors: Reports: None Surgical Obstruction Risk Factors: Reports: None Related Surgical History: Reports: None Abdominal Findings: Present: None Differential Diagnoses: UTI, Other (urinary retention) Review of Systems - Review Of Systems Constitutional: Reports: No symptoms, Malaise, Weakness Eyes: Reports: No symptoms Ears, Nose, Mouth, Throat: Reports: No symptoms Respiratory: Reports: No symptoms Cardiac: Reports: No symptoms GI: Reports: Abdominal pain, Poor fluid intake : Reports: No symptoms, Other (difficulty urination ) Musculoskeletal: Reports: No symptoms Skin: Reports: No symptoms Neurological: Reports: Other (unable to urinate voluntarily ) Endocrine: Reports: No symptoms Hematologic/Lymphatic: Reports: No symptoms All Other Systems: Reviewed and Negative Past Medical History - Past Medical History Previously Healthy: Yes Endocrine: Reports: Dyslipidemia Cardiovascular: Reports: Hypertension Respiratory: Reports: None Hematological: Reports: None Gastrointestinal: Reports: None Genitourinary: Reports: None, Unknown (urinary retention) Neuro/Psych: Reports: None Musculoskeletal: Reports: Back Pain, Other (KNEE EFFUSION IN PAST) Cancer: Reports: None Other Pertinent Past Medical History: mplanted device rt back for neurogenic bladder - Surgical History General Surgical History: Reports: Other (mplanted device rt back for neurogenic bladder), Unknown - Family History Family History: Reports: Unknown - Social History Smoking Status: Current every day smoker, Heavy tobacco smoker Hx Substance Use: No Alcohol Screening: Heavy Physical Exam - Physical Exam Appearance: Ill-appearing, No pain distress Ill-appearing: Moderate Pain Distress: Moderate Eyes: WARREN, EOMI, Conjunctiva clear ENT: Ears normal, Nose normal, Oropharynx normal Respiratory: Airway patent, Breath sounds clear, Breath sounds equal, Respirations nonlabored Cardiovascular: RRR, Pulses normal, No rub, No murmur GI/: Soft, Nontender, Bowel sounds normal, Tender (at lower abdomenial area ) Musculoskeletal: Normal strength, ROM intact, No edema, No calf tenderness Skin: Warm, Dry, Normal color Neurological: Sensation intact, Motor intact, Reflexes intact, Cranial nerves intact, Alert, Oriented Psychiatric: Affect appropriate, Mood appropriate Critical Care Note - Critical Care Note Total Time (mins): 0 Course - Course Hematology/Chemistry: 11/13/17 13:25 11/13/17 13:25 Orders, Labs, Meds: Lab Review 11/13/17 11/13/17 11/13/17 13:23 13:25 13:25 WBC 7.45 RBC 4.19 L Hgb 13.9 L Hct 39.3 L MCV 93.8 MCH 33.2 H MCHC 35.4 RDW Coeff of Stalin 12.1 Plt Count 109 L Immature Gran % (Auto) 0.1 Neut % (Auto) 70.4 Lymph % (Auto) 17.6 [place] % (Auto) 10.2 H Eos % (Auto) 0.9 Baso % (Auto) 0.8 Immature Gran # (Auto) 0.0 Neut # (Auto) 5.2 Lymph # (Auto) 1.3 [place] # (Auto) 0.8 Eos # (Auto) 0.1 Baso # (Auto) 0.1 Sodium 136 Potassium 3.9 Chloride 97 L Carbon Dioxide 26 Anion Gap 16.9 BUN 9 Creatinine 0.78 Estimated GFR (MDRD) 103.00 BUN/Creatinine Ratio 11.53 Glucose 83 Calcium 9.7 Total Bilirubin 0.8 AST 63 H ALT 73 Alkaline Phosphatase 47 L Total Protein 7.5 Albumin 3.6 Globulin 3.9 Albumin/Globulin Ratio 0.92 Amylase 100 Lipase 27 Urine Color Yellow Urine Clarity Cloudy Urine pH 5.5 Ur Specific [place] <=1.005 Urine Protein 2+ Urine Glucose (UA) Negative Urine Ketones Negative Urine Blood 1+ Urine Nitrite Positive Urine Bilirubin Negative Urine Urobilinogen 0.2 Ur Leukocyte Esterase 3+ Urine Microscopic RBC 5-10 Urine Microscopic WBC 10-20 Ur Squamous Epith Cells 2-5 Amorphous Sediment 2+ Urine Bacteria 3+ Orders Category Date Time Status BLADDER SCAN ONCE CARE 11/13/17 13:11 Active AMYLASE Stat LAB 11/13/17 13:25 Completed CBC W/ AUTO DIFF Stat LAB 11/13/17 13:25 Completed COMPREHENSIVE METABOLIC PANEL Stat LAB 11/13/17 13:25 Completed LIPASE Stat LAB 11/13/17 13:25 Completed URINALYSIS C & S IF INDICATED Stat LAB 11/13/17 13:23 Completed URINE CULTURE Stat LAB 11/13/17 13:23 Received Lidocaine HCl [Uro-Jet] MEDS 11/13/17 14:08 Discontinued 10 ml MUCOUSMEMB .STK-MED ONE Morphine Sulfate [Morphine 2 mg/ml Syringe] MEDS 11/13/17 13:13 Discontinued 2 mg IVP ONCE STA Ondansetron HCl/Pf [Zofran 4 mg/2 ml] MEDS 11/13/17 13:13 Discontinued 4 mg IVP ONCE STA Sodium Chloride 0.9% [Sodium Chloride] 1,000 ml MEDS 11/13/17 13:12 Active IV 125 mls/hr CT ABDOMEN/PELVIS WO CONTRAST Stat RADS 11/13/17 13:12 Completed Medications Generic Name Dose Route Start Last Admin Trade Name Freq PRN Reason Stop Dose Admin Sodium Chloride 1,000 mls @ 125 mls/hr 11/13/17 13:12 11/13/17 13:50 Sodium Chloride IV 11/13/17 21:11 125 mls/hr .Q8H STA Administration Discontinued Medications Generic Name Dose Route Start Last Admin Trade Name Trentonq PRN Reason Stop Dose Admin Morphine Sulfate 2 mg 11/13/17 13:13 11/13/17 13:51 Morphine 2 Mg/Ml Syringe IVP 11/13/17 13:14 2 mg ONCE STA Administration Ondansetron HCl 4 mg 11/13/17 13:13 11/13/17 13:51 Zofran 4 Mg/2 Ml IVP 11/13/17 13:14 4 mg ONCE STA Administration Vital Signs: Temp Pulse Resp BP Pulse Ox 11/13/17 12:43 98.8 F 85 16 163/96 H 96 Departure - Departure Time of Disposition: 14:37 (urinary retention 1200 ml. I STRESSED UROLOGY FOLLOW UP WITH GHADA AND PA STUDENT AT BEDSIDE) Disposition: HOME SELF-CARE Discharge Problem: Urinary retention UTI (urinary tract infection) Qualifiers: Urinary tract infection type: site unspecified Hematuria presence: with hematuria Qualified Code(s): N39.0 - Urinary tract infection, site not specified Instructions: Urinary Retention in Men (ED), Urinary Tract Infection in Men (ED ) Condition: Good Pt referred to PMD for follow-up: Yes IPMP verified?: No Additional Instructions: Please call your Family Physician as soon as possible to schedule a follow-up appointment.YOU HAVE A URINARY RETENTION, THE PRESENT CATHETER WILL DRAIN YOUR URINE BUT YOU MUST JERSEY SURE YOU SEE YOUR PROVIDER FOR URGENT UROLOGY REFERAL. FAILURE TO DO SO MAY RESULT IN KIDNEY SHUT DOWN AND DIALYSIS. TAKE ISSUE VERY SERIOUSLY Prescriptions: Sulfamethoxazole/Trimethoprim [Bactrim Ds 800/160 mg] 1 tab PO Q12HR #14 tablet Allergies/Adverse Reactions: Allergies No Known Allergies Allergy (Verified 11/13/17 12:47) Home Medications: Ambulatory Orders Alprazolam [Xanax] 0.5 mg PO TID PRN 08/18/15 Diltiazem HCl [Cardizem] 60 mg PO Q12HR #60 tablet 04/23/16 Hydrocodone Bit/Acetaminophen [[place] 5-325] 1 - 2 tab PO Q6HR PRN #12 tablet Metoprolol Tartrate [Lopressor] 25 mg PO BID 06/26/16 Sulfamethoxazole/Trimethoprim [Bactrim Ds 800/160 mg] 1 tab PO Q12HR #14 tablet 11/13/17
--- NOTE | 2017-11-13 13:57 | CT ---
EXAM: CT Abdomen without contrast. CT Pelvis without contrast. HISTORY: Constipation. COMPARISON: 02/08/2017. TECHNIQUE: Multiple axial images of the abdomen and pelvis were obtained without intravenous contras t. Images were reformatted in the sagittal and coronal plane. FINDINGS: Please note that evaluation of the abdominal and pelvic structures is limited due to lack of intravenous contrast. Lung bases are clear. No acute osseous abnormality identified. The liver is diffusely low density. The gallbladder, pancreas, spleen, adrenal glands demonstrate no rmal contour. There is moderate right and mild left hydronephrosis. Urinary bladder is markedly distended. The bowel is normal in course and caliber without evidence for obstruction or inflammatory process. The appendix is normal. No free fluid or free air identified. Sacral nerve root stimulator noted on the right. Atherosclerotic calcifications are present. IMPRESSION: 1. Marked urinary bladder distension with moderate right and mild left hydronephrosis suggesting uri nary retention. 2. Fatty liver.
[2017-11-13] MEDS ORDERED: URO-JET MUCOUSMEMB ONE (14:08)
== END 2017-11-13 15:30 | disposition home or self-care (01) ==
LOC: ED 12:38
DX: N39.0 Urinary tract infection, site not specified (principal); R33.9 Retention of urine, unspecified; R53.1 Weakness; I10 Essential (primary) hypertension; N31.9 Neuromuscular dysfunction of bladder, unspecified; F17.210 Nicotine dependence, cigarettes, uncomplicated; Z79.899 Other long term (current) drug therapy; Z96.0 Presence of urogenital implants
CPT/HCPCS: 36415; 80053; 81001; 82150; 83690; 85025; 87086; 87186; 96360; 96361; 96375; 99284

== ENCOUNTER 2017-11-30 19:33 | Inpatient (IN) ==
[2017-11-30] MEDS ORDERED: SODIUM CHLORIDE 1,000 ML IV STA (20:05)
[2017-11-30] MEDS ORDERED: THIAMINE 100 MG in SODIUM CHLORIDE 50 ML IV STA (20:08)
[2017-11-30] MEDS ORDERED: THIAMINE ONE (20:30)
--- NOTE | 2017-11-30 20:48 | ED.PDOC ---
General ED Provider: Dr. RAYMUNDO PATTERSON Chief Complaint: Urinary Problem Stated Complaint: Patient is a 57 year old male who has a history of Urogenic bladder who comes to the ER with inability to unable to urinate. States that he catheterized himself this morning at 0800. Has not catheterized himself again since. He states that he feels very weak, admits to drinking beer today. Also admist that he is an Alcoholic. He states that he has a Bladder stimulator but has stopped working. He states that his insurance has ran out and is unable to get anyone to see him. Time Seen by Physician: 19:40 Mode of Arrival: Walk-In Information Source: Patient, Family Exam Limitations: No limitations Primary Care Provider: SOFIA QUIROGA Nursing and Triage Documentation Reviewed and Agree: Yes Does patient meet sepsis criteria?: No If yes, has appropriate treatment been initiated?: No System Inflammatory Response Syndrome: Not Applicable Sepsis Protocol: For patient's 13 years and over: Temp is 96.8 and below OR 101 and greater Pulse >90 BPM Resp >20/minute Acutely Altered Mental Status Are patient's symptoms suggestive of a new infection, such as: -Pneumonia -Skin, Soft Tissue -Endocarditis -UTI -Bone, Joint Infection -Implantable Device -Acute Abdominal Infection -Wound Infection -Meningitis -Blood Stream Catheter Infection -Unknown Review of Systems - Review Of Systems Constitutional: Reports: Weakness Eyes: Reports: No symptoms Ears, Nose, Mouth, Throat: Reports: No symptoms Respiratory: Reports: No symptoms Cardiac: Reports: No symptoms GI: Reports: No symptoms : Reports: Other (inability to urinate) All Other Systems: Reviewed and Negative Past Medical History - Past Medical History Endocrine: Reports: Dyslipidemia Cardiovascular: Reports: Hypertension Respiratory: Reports: None Hematological: Reports: None Gastrointestinal: Reports: None Genitourinary: Reports: CKD, Other (urinary retention) Neuro/Psych: Reports: Anxiety, Depression, Other (Alcoholism) Musculoskeletal: Reports: Back Pain, Other (KNEE EFFUSION IN PAST) Cancer: Reports: None Other Pertinent Past Medical History: implanted device rt back for neurogenic bladder - Surgical History General Surgical History: Reports: Other (mplanted device rt back for neurogenic bladder) - Family History Family History: Reports: Unknown - Social History Smoking Status: Current every day smoker, Heavy tobacco smoker Hx Substance Use: No Alcohol Screening: Heavy - Immunizations Tetanus Shot up to Date: Yes Physical Exam - Physical Exam Appearance: Ill-appearing, Thin Ill-appearing: Moderate Pain Distress: Mild Neck: Supple Respiratory: Airway patent, Breath sounds clear, Breath sounds equal, Respirations nonlabored Cardiovascular: Pulses normal, Tachycardia GI/: Soft, Nontender, No masses, Bowel sounds normal, No Organomegaly Musculoskeletal: Normal strength, ROM intact, No edema, No calf tenderness Skin: Warm, Dry, Normal color Neurological: Sensation intact Psychiatric: Anxious, Depressed Physician Notification - Case Discussed Physician Notified: Dr Dodge Time of Notification: 22:30 (admit to telemetry ) Critical Care Note - Critical Care Note Total Time (mins): 45 Course - Course Hematology/Chemistry: 11/30/17 20:20 11/30/17 20:20 Orders, Labs, Meds: Lab Review 11/30/17 11/30/17 11/30/17 20:20 20:20 21:27 WBC 10.19 RBC 4.01 L Hgb 13.2 L Hct 37.2 L MCV 92.8 MCH 32.9 H MCHC 35.5 H RDW Coeff of Stalin 13.0 Plt Count 303 Immature Gran % (Auto) 1.4 Neut % (Auto) 65.2 Lymph % (Auto) 14.9 [place] % (Auto) 17.4 H Eos % (Auto) 0.6 Baso % (Auto) 0.5 Immature Gran # (Auto) 0.1 Neut # (Auto) 6.7 Lymph # (Auto) 1.5 [place] # (Auto) 1.8 Eos # (Auto) 0.1 Baso # (Auto) 0.1 Sodium 125 L Potassium 3.6 Chloride 87 L Carbon Dioxide 22 Anion Gap 19.6 BUN 34 H Creatinine 1.61 H Estimated GFR (MDRD) 45.00 BUN/Creatinine Ratio 21.11 Glucose 112 H Calcium 9.8 Total Bilirubin 0.7 AST 135 H ALT 82 H Alkaline Phosphatase 181 H Total Creatine Kinase 27 Troponin I 0.0170 Total Protein 7.9 Albumin 3.0 L Globulin 4.9 Albumin/Globulin Ratio 0.61 Urine Color Urine Clarity Urine pH Ur Specific [place] Urine Protein Urine Glucose (UA) Urine Ketones Urine Blood Urine Nitrite Urine Bilirubin Urine Urobilinogen Ur Leukocyte Esterase Urine Microscopic RBC Urine Microscopic WBC Ur Squamous Epith Cells Urine Bacteria Urine Mucus Urine Opiates Screen Negative Ur Oxycodone Screen Negative Urine Methadone Screen Negative Ur Propoxyphene Screen Negative Ur Barbiturates Screen Negative U Tricyclic Antidepress Negative Ur Phencyclidine Scrn Negative Ur Amphetamine Screen Negative U Methamphetamines Scrn Negative U Benzodiazepines Scrn Positive Urine Cocaine Screen Negative U Cannabinoids Screen Negative Plasma/Serum Alcohol 146.4 H 11/30/17 21:27 WBC RBC Hgb Hct MCV MCH MCHC RDW Coeff of Stalin Plt Count Immature Gran % (Auto) Neut % (Auto) Lymph % (Auto) [place] % (Auto) Eos % (Auto) Baso % (Auto) Immature Gran # (Auto) Neut # (Auto) Lymph # (Auto) [place] # (Auto) Eos # (Auto) Baso # (Auto) Sodium Potassium Chloride Carbon Dioxide Anion Gap BUN Creatinine Estimated GFR (MDRD) BUN/Creatinine Ratio Glucose Calcium Total Bilirubin AST ALT Alkaline Phosphatase Total Creatine Kinase Troponin I Total Protein Albumin Globulin Albumin/Globulin Ratio Urine Color Dark Urine Clarity Slightly Urine pH 5.5 Ur Specific [place] 1.010 Urine Protein Trace Urine Glucose (UA) Negative Urine Ketones Negative Urine Blood 1+ Urine Nitrite Positive Urine Bilirubin Negative Urine Urobilinogen 0.2 Ur Leukocyte Esterase 3+ Urine Microscopic RBC 10-20 Urine Microscopic WBC Tntc Ur Squamous Epith Cells 2-5 Urine Bacteria 2+ Urine Mucus Trace Urine Opiates Screen Ur Oxycodone Screen Urine Methadone Screen Ur Propoxyphene Screen Ur Barbiturates Screen U Tricyclic Antidepress Ur Phencyclidine Scrn Ur Amphetamine Screen U Methamphetamines Scrn U Benzodiazepines Scrn Urine Cocaine Screen U Cannabinoids Screen Plasma/Serum Alcohol Orders Category Date Time Status EKG-(ED ONLY) Stat CARDIO 11/30/17 20:05 Completed Walker [CATHETER INSERTION AND CARE] Q8HR CARE 11/30/17 20:48 Active REMINDER: Ask MD to d/c walker DAILY CARE 11/30/17 20:48 Active Bladder [ED BLADDER SCAN] .ONCE EMERGENCY 11/30/17 20:08 Active ED IV/MEDIPORT/POWERPORT .ONCE EMERGENCY 11/30/17 20:05 Active BLOOD ALCOHOL Stat LAB 11/30/17 20:20 Completed CBC W/ AUTO DIFF Stat LAB 11/30/17 20:20 Completed COMPREHENSIVE METABOLIC PANEL Stat LAB 11/30/17 20:20 Completed CREATINE KINASE Stat LAB 11/30/17 20:20 Completed TROPONIN I Stat LAB 11/30/17 20:20 Completed URINALYSIS C & S IF INDICATED Stat LAB 11/30/17 21:27 Completed URINE CULTURE Stat LAB 11/30/17 21:27 Received URINE DRUG SCREEN (RAPID FOR ED) [DRUG SCREEN, URINE, LAB 11/30/17 21:27 Completed RAPID] Stat 0.9 % Sodium Chloride [Saline Flush] MEDS 11/30/17 20:05 Ordered 1 syr IVF PRN PRN Lidocaine HCl [Uro-Jet] MEDS 11/30/17 20:57 Discontinued 10 ml MUCOUSMEMB .STK-MED ONE Sodium Chloride 0.9% [Sodium Chloride] 1,000 ml MEDS 11/30/17 20:05 Discontinued IV 1,000 mls/hr Vitamin B-1 Inj [Thiamine] MEDS 11/30/17 20:30 Discontinued 200 mg .ROUTE .STK-MED ONE Vitamin B-1 Inj [Thiamine] 100 mg MEDS 11/30/17 20:08 Discontinued 0.9 % Sodium Chloride [Sodium Chloride] 50 ml IV ONCE CHEST, 1V AP ONLY Stat RADS 11/30/17 20:05 Completed Medications Generic Name Dose Route Start Last Admin Trade Name Freq PRN Reason Stop Dose Admin Sodium Chloride 1 syr 11/30/17 20:05 Saline Flush IVF PRN PRN To flush IV Discontinued Medications Generic Name Dose Route Start Last Admin Trade Name Freq PRN Reason Stop Dose Admin Sodium Chloride 1,000 mls @ 1,000 mls/hr 11/30/17 20:05 11/30/17 20:35 Sodium Chloride IV 11/30/17 21:04 1,000 mls/hr .Q1H STA Administration Thiamine HCl 100 mg/ Sodium 51 mls @ 100 mls/hr 11/30/17 20:08 11/30/17 20:35 Chloride IV 11/30/17 20:38 100 mls/hr ONCE STA Administration Vital Signs: Temp Pulse Resp BP Pulse Ox 11/30/17 19:33 97.4 F L 104 H 20 110/73 93 L Departure - Departure Time of Disposition: 22:40 Disposition: ADMITTED INPATIENT Discharge Problem: Urinary retention, Hypochloremia, Alcohol abuse, Acute hyponatremia UTI (urinary tract infection) Qualifiers: Urinary tract infection type: acute cystitis Hematuria presence: with hematuria Qualified Code(s): N30.01 - Acute cystitis with hematuria Condition: Stable Pt referred to PMD for follow-up: No IPMP verified?: No Allergies/Adverse Reactions: Allergies No Known Allergies Allergy (Verified 11/30/17 19:44) Home Medications: Ambulatory Orders Alprazolam [Xanax] 0.5 mg PO TID PRN 08/18/15 Hydrocodone Bit/Acetaminophen [[place] 5-325] 1 - 2 tab PO Q6HR PRN #12 tablet Metoprolol Tartrate [Lopressor] 25 mg PO DAILY 06/26/16 Diltiazem HCl [Cardizem] 60 mg PO DAILY 11/30/17 Disposition Discussed With: Patient, Family
[2017-11-30] MEDS ORDERED: URO-JET MUCOUSMEMB ONE (20:57)
--- NOTE | 2017-11-30 21:48 | DI ---
Exam: Single view of the chest. Comparison: CT chest performed 02/08/2017 Reason for exam: Chest pain. FINDINGS: No pneumothorax, pleural effusion, or focal consolidation. Similar appearing fractures ar e seen in the left hemithorax not significantly changed from previous exam. The cardiac silhouette i s unchanged. Impression: No acute cardiopulmonary process with similar appearing left-sided rib fractures
[2017-11-30] MEDS ORDERED: ROCEPHIN 1 GM in SODIUM CHLORIDE 50 ML IV SCH (23:00)
[2017-11-30] MEDS ORDERED: ROCEPHIN ONE (23:09)
[2017-11-30] MEDS: D5%-NS-KCL 20 MEQ/L IV SOL 1,000 ML IV SCH (23:17)
[2017-12-01] MEDS ORDERED: XANAX ONE (00:26)
[2017-12-01] MEDS: LIBRAX 5/2.5 MG PO PRN ×2 (00:28→20:14)
[2017-12-01 01:30] VITALS: BMI 21.4
[2017-12-01] MEDS: DUONEB NEB PRN (05:00)
[2017-12-01] MEDS: LOVENOX SUBCUT SCH (08:46)
[2017-12-01] MEDS: LOPRESSOR PO SCH (08:47)
[2017-12-01] MEDS: D5%-NS-KCL 20 MEQ/L IV SOL 1,000 ML IV SCH ×3 (08:47→19:31)
[2017-12-01] MEDS: CARDIZEM PO SCH (08:47)
[2017-12-01] MEDS: XANAX PO PRN (20:14)
[2017-12-01] MEDS: ROCEPHIN 1 GM in SODIUM CHLORIDE 50 ML IV SCH (20:14)
--- NOTE | 2017-12-01 23:01 | CT ---
EXAM: CT of the chest without contrast. HISTORY: Shortness of breath. PROCEDURE: Contiguous axial CT images of the chest without contrast with coronal and sagittal reform ats. FINDINGS: Comparison made with CT chest of 02/08/[address] chest and . The heart is within normal limits in size. The thoracic aorta is within normal limits in diameter. There are calcified m ediastinal and hilar lymph nodes. There are calcified granulomas in the right upper lobe and left up per lobe. There are two stable nodules in the right apex measuring up to [address] of . There is minimal scarring in the right apex. There is minimal bibasilar dependent atelecta sis. There are degenerative changes in the spine. There are multiple old left rib fractures. Impression: Minimal bilateral dependent atelectasis. Stable nodules in the right apex as described compared with CT of 04/06/2014. No further follow-up r equired.
--- NOTE | 2017-12-01 23:05 | CT ---
EXAM: CT scan abdomen pelvis without contrast HISTORY: Entered tract infection, neurogenic bladder COMPARISON: CT scan abdomen pelvis 11/13/2017 FINDINGS: Contiguous axial images obtained through the abdomen pelvis without contrast utilizing 3-m m collimation. Sagittal and coronal reconstructions were imaged and reviewed.. There is dependent a telectasis in both lung bases. Fatty infiltration is seen within the liver. The gallbladder pancrea s spleen and adrenal glands have normal unenhanced CT appearance.. The kidneys morphologically loida l. Atherosclerotic changes are seen involving the aorta without aneurysm formation. There is a Fole y catheter in the bladder. There is there is marked bladder wall thickening compatible with cystitis. The air within the bladder may be iatrogenic in nature. There is no free fluid. The prostate glan d is normal.. Sacral nerve root stimulator noted on the right. IMPRESSION: Marked bladder wall thickening with a Lopez catheter in place. Findings compatible with cystitis Dependent atelectasis in both lung bases. Fatty liver. ASVD without aneurysm.
[2017-12-02] MEDS: D5%-NS-KCL 20 MEQ/L IV SOL 1,000 ML IV SCH (05:08)
[2017-12-02] MEDS: DUONEB NEB PRN (05:20)
[2017-12-02] MEDS: CARDIZEM PO SCH (08:57)
[2017-12-02] MEDS: LOPRESSOR PO SCH (08:57)
[2017-12-02] MEDS: LOVENOX SUBCUT SCH (08:58)
--- NOTE | 2017-12-02 09:19 | HP ---
DATE OF SERVICE: 11/30/17 CHIEF COMPLAINT: Urinary retention HISTORY OF PRESENT ILLNESS: This is a 57 year old male who has extensive history of a neurogenic bladder for which he went to [facility] in the year 1999 and had a pacemaker put in but lately he seems that pacemaker is not working. He did see the Urologist in [facility] but he has been scheduled to evaluate that in December 14 but the patient having trouble urinating and not able to pass urine so came to the emergency room and seen by Dr. Mancia. Lately he has been feeling that he bas been having the shock sent to the right side of lower [place], thinks that the pacemaker is not working. The patient was seen by Dr. Mancia. WBC was normal, Chemistry; sodium 125, BUN 34, creatinine 1.6 and glucose 112. Urine is positive for the blood Nitrates positive, leukocyte esterase positive and bacteria positive. Toxicology positive for Benzo. The patient was telling that patient has been drinking today and the Alcohol level is 146. As the patient was having the severe urinary tract infection and alcohol intoxication and urinary retention with Lopez Catheter now the patient been admitted to the hospital for the IV antibiotics and acute on chronic renal failure. The patient was admitted for the IV fluids and IV antibiotics. The patient also has an elevated AST and we will evaluate. REVIEW OF SYSTEMS: CONSTITUTIONAL: No fever, no chills. Weakness and tiredness. HEENT: Normal. ENDOCRINE: No weight gain; no weight loss. CVS: No chest pain. No PND, no orthopnea. No shortness of breath. No PND, no orthopnea. Shocks in the lower back. RESPIRATORY: No cough, no congestion. No hemoptysis. GI: No nausea, no vomiting. No abdominal pain. No melena. : No hematuria. No polyuria. Neurogenic bladder. MUSCULOSKELETAL: No joint swelling. PSYCHIATRIC: Not anxious. No depression. No suicidal thoughts. No homicidal thoughts. SKIN: Intact, no open lesions. PAST MEDICAL HISTORY/PAST SURGICAL HISTORY: Coronary artery disease Dyslipidemia Hypertension Headaches COPD Neurogenic bladder Anxiety Substance use tobacco and alcohol PERSONAL HISTORY: The patient does smoke, alcohol use. FAMILY HISTORY: [place] at age of 50. MEDICATIONS: Xanax Lopressor Cardizem ALLERGIES: No known drug allergies PHYSICAL EXAMINATION: V/S: Blood pressure 110/73, respiratory rate 20, heart rate 104, temperature 97.4 with saturation 93%. GENERAL: Cachetic man laying in the bed and not in any distress. HEENT: Atraumatic, normocephalic. No scleral icterus. Pallor positive. Mucosa dry. NECK: Supple. No JVD, no bruit. No lymphadenopathy. No thyromegaly. HEART: S1, S2 normal. No murmur. No cyanosis or clubbing. No ascites. LUNGS: Decreased and clear to auscultation. No rales or rhonchi. ABDOMEN: Soft, nontender. Bowel sounds are active. No CVA tenderness. No rigidity or guarding. EXTREMITIES: No pedal edema. No cyanosis or clubbing MUSCULOSKELETAL: Normal joints, no swelling. NEUROLOGIC: The patient is awake and alert. SKIN: Intact; no open lesions. LYMPHATIC: No lymph nodes palpable. LABS: Sodium 125, potassium 3.6, chloride 87, bicarb 22, BUN 34, creatinine 1.61 and glucose 112, WBC 10.19, hgb 13.2, hct 37.2, plt count 303. ASSESSMENT: 1. Urinary tract infection 2. Acute on chronic renal failure 3. Urinary retention 4. Neurogenic bladder 5. Anemia 6. Hyponatremia 7. Anxiety 8. Elevated liver functions. PLAN: 1. Admit the patient to the regular floor 2. IV fluids 3. Rocephin 1 gram daily 4. Lopez catheter care 5. Librium 6. MVI with the Thiamine TIME SPENT: MORE THAN 70 minutes MTDD
--- NOTE | 2017-12-02 10:39 | PN ---
DATE OF SERVICE: 12/01/17 SUBJECTIVE: The patient is worried about his pacemaker. Still giving the shocks on the right side. Appointment in December. No fever. REVIEW OF SYSTEMS: CONSTITUTIONAL: No fever, no chills. HEENT: Normal. ENDOCRINE: No weight gain, no weight loss. CVS: No angina symptoms. No CHF symptoms. No palpitations. No atypical chest pain for CAD. No shortness of breath. No PND, no orthopnea. RESPIRATORY: Cough and congestion, no hemoptysis. GI: No nausea, no vomiting. No abdominal pain. : No hematuria. No polyuria. MUSCULOSKELETAL: No joint swelling. PSYCHIATRIC: Not anxious. No depression. No suicidal thoughts. No homicidal thoughts. SKIN: Intact. No rash. PHYSICAL EXAMINATION: V/S: Blood pressure 117/75, respiratory rate 20, heart rate 80, temperature 97.9 with saturation 98% GENERAL: Cachetic man laying in the bed and not in any distress. HEENT: Normocephalic, atraumatic. Mucosa dry. Pallor positive. No icterus. NECK: Supple. No JVD, no carotid bruit. No lymphadenopathy. LUNGS: Clear to auscultation. No rales or rhonchi. HEART: S1, S2 normal. No S3. No murmur, gallop or regurgitation. ABDOMEN: Soft, nontender. Bowel sounds active. No rigidity. No rebound or guarding. No CVA tenderness. EXTREMITIES: No cyanosis, clubbing or pedal edema. MUSCULOSKELETAL: No joint swelling. NEUROLOGIC: Awake, alert, oriented times three. No focal deficit. LYMPHATIC: No lymph nodes palpable. SKIN: Intact. LABS: WBC 10.45, hgb 11.7, hct 33.6, plt count 309, sodium 130, potassium 4.4, chloride 96, bicarb 24, BUN 27, creatinnie 1.19, glucose 101. ASSESSMENT: 1. Urinary tract infection 2. Urinary retention 3. Neurogenic bladder 4. Hyponatremia 5. Anxiety 6. Elevated liver enzymes PLAN: 1. Will get CT chest and abdomen and pelvis 2. Continue IV fluids 3. Continue Rocephin 4. Thiamine 1 gram daily Will follow the patient in daily rounds. TIME SPENT: More than 35 minutes MTDD
--- NOTE | 2017-12-02 12:02 | US ---
Exam: Blair-scale and color Doppler ultrasonographic evaluation of the abdomen. Limited abdominal ul trasound Comparison: CT abdomen pelvis performed 12/01/2017. Reason for exam: Abnormal liver labs FINDINGS: The liver measures approximately 11.4 cm in length with a hyperechoic appearing echotextur e. There is normal antegrade portal venous flow without evidence of intrahepatic ductal dilatation o r perihepatic free fluid. The gallbladder wall measures 0.33 cm which is mildly prominent. Sludge is seen within the dependent portion of the gallbladder. The sonographic Lamar's test is reportedly negative. The common bile duct measures 0.8 cm The partially imaged pancreas appears grossly unremarkable without ductal dilatation. The right kidney measures approximately 11.2 x 5.3 x 4.2 cm without hydronephrosis or nephrolithiasis . There is a 2.9 x 2.6 x 4.7 cm solid nodule versus heterogeneous nodular parenchyma in the right infer ior pole. Impression: 1. Hepatic steatosis. 2. Gallbladder sludging with mild wall thickening. Imaging findings are not consistent with acute c holecystitis. The sonographic Lamar's test is reportedly negative. 3. 4.7 cm solid nodular mass in the right inferior renal pole versus heterogeneous renal parenchyma. MRI is recommended for further characterization.
[2017-12-02] MEDS: ROCEPHIN 1 GM in SODIUM CHLORIDE 50 ML IV SCH (20:43)
[2017-12-02] MEDS: XANAX PO PRN (22:33)
[2017-12-03] MEDS: DUONEB NEB PRN (05:22)
[2017-12-03] MEDS: CARDIZEM PO SCH ×3 (08:34→20:03)
[2017-12-03] MEDS: LOVENOX SUBCUT SCH (08:35)
[2017-12-03] MEDS: LOPRESSOR PO SCH (08:35)
[2017-12-03] MEDS: D5%-NS-KCL 20 MEQ/L IV SOL 1,000 ML IV SCH (10:58)
[2017-12-03] MEDS ORDERED: ATIVAN IVP STA (11:21)
--- NOTE | 2017-12-03 14:38 | CT ---
EXAM: CT abdomen pelvis with and without contrast HISTORY: Possible right renal mass COMPARISON: Ultrasound 12/02/[address] is dating to 2013 TECHNIQUE: CT abdomen pelvis performed with and without intravenous contrast. Coronal and sagittal reformatted images obtained. Post contrast images obtained in the arterial, venous, and delayed phas es FINDINGS: Lung bases clear. No free air. No acute abnormalities of the bones. Electronic stimulat or or in the pelvis. Degenerative change in the spine. Heart normal in size. Liver diffusely decre ased attenuation. Gallbladder unremarkable. Pancreas unremarkable. Spleen unremarkable. Adrenals unremarkable. Aorta normal in caliber. Moderate to severe atherosclerosis. No lymphadenopathy or a scites. Prostate mildly enlarged. Lopez catheter terminates in the bladder. Marked thickening of t he bladder wall. Air in the bladder lumen, consistent with Lopez catheter placement. Stomach appear s normal. No dilated loops small bowel. Appendix appears normal. Colon unremarkable. No hydroneph rosis or nephrolithiasis. Sub centimeter hypodensity left kidney is unchanged from 2015, most consis tent with benign etiology.. There are areas of cortical hypo attenuation in the right kidney, best s een on series 4 image 47 anteriorly and 52 posteriorly, that are somewhat wedge-shaped. Similar appe aring area in the left kidney image 63. Areas of left renal cortical scarring likely related to katerine te insult. There is lobular renal cortex in the right inferior kidney that is unchanged from 2015, l ikely correlating with the finding on ultrasound. 3 mm filling defect seen on the excretory phase vern ges near the left ureteropelvic junction, image 54 series 12 IMPRESSION: 1. Bilateral areas of renal cortical hypodensities most likely represents pyelonephritis. Different ial diagnosis includes areas of renal infarcts. Recommend correlation with urinalysis. Neoplastic vianney ology such as lymphoma could have a similar appearance and CT renal protocol follow-up is recommended in 4-6 weeks for reevaluation. 2. Markedly thickened bladder wall may represent cystitis. Neoplastic etiology not excluded. Recom mend correlation with direct visualization. Lopez catheter present. 3. 3 mm filling defect left near the left ureteropelvic junction. Differential diagnosis includes u rothelial lesion/neoplasm and other filling defect such as small debris or blood product. Recommend attention on follow-up and/or direct visualization. 4. Hepatic steatosis. 5. Mildly enlarged prostate
[2017-12-03] MEDS: ROCEPHIN 1 GM in SODIUM CHLORIDE 50 ML IV SCH (20:04)
[2017-12-04] MEDS: LOPRESSOR PO SCH (08:44)
[2017-12-04] MEDS: CARDIZEM PO SCH (08:44)
[2017-12-04] MEDS: LOVENOX SUBCUT SCH (08:45)
--- NOTE | 2017-12-04 08:48 | PN ---
DATE OF SERVICE: 12/03/17 SUBJECTIVE: Ultrasound of the abdomen shows some kind mass in the kidney area which was discussed with the patient and we go ahead and get a CT of the abdomen and pelvis. UTI being controlled with antibiotic Rocephin. Urine is growing Enterobacter Cloacae. REVIEW OF SYSTEMS: CONSTITUTIONAL: No fever, no chills. HEENT: Normal. ENDOCRINE: No weight gain, no weight loss. CVS: No angina symptoms. No CHF symptoms. No palpitations. No atypical chest pain for CAD. No shortness of breath. No PND, no orthopnea. RESPIRATORY: No cough, no hemoptysis. GI: No nausea, no vomiting. No abdominal pain. : No hematuria. No polyuria. MUSCULOSKELETAL: No joint swelling. PSYCHIATRIC: Not anxious. No depression. No suicidal thoughts. No homicidal thoughts. SKIN: Intact. No rash. PHYSICAL EXAMINATION: V/S: Blood pressure 123/71, respiratory rate 12 heart rate 52, temperature 97.9 with saturation 100%. HEENT: Normocephalic, atraumatic. Mucosa dry. Pallor positive. No icterus. NECK: Supple. No JVD, no carotid bruit. No lymphadenopathy. LUNGS:Decreased and clear to auscultation. No rales or rhonchi. HEART: S1, S2 normal. No S3. No murmur, gallop or regurgitation. ABDOMEN: Soft, nontender. Bowel sounds active. No rigidity. No rebound or guarding. No CVA tenderness. EXTREMITIES: No cyanosis, clubbing or pedal edema. MUSCULOSKELETAL: No joint swelling. NEUROLOGIC: Awake, alert, oriented times three. No focal deficit. LYMPHATIC: No lymph nodes palpable. SKIN: Intact. LABS: Sodium 137, potassium 4.3, chloride 103, bicarb 25, BUN 10, creatinine 0.84, WBC 9.28, hgb 10.9, hct 31.7, plt count 427. ASSESSMENT: 1. Urinary tract infection organism Enterobacter Cloacae. 2. Renal mass, will CT of abdomen and pelvis 3. Neurogenic bladder 4. Osteoarthritis 5. DJD spin PLAN: 1. Continue the Rocephin [address] abdomen and pelvis 3. IV fluids 4. Up and about and walking TIME SPENT: More than 35 minutes MTDD
[2017-12-04 09:11] VITALS: BP 141/81; TEMP 97.9
--- NOTE | 2017-12-04 11:35 | PN ---
DATE OF SERVICE: 12/02/17 SUBJECTIVE: The patient was admitted with the urinary tract infection. The patient has a neurogenic bladder. CT abdomen and pelvis done showed marked bladder wall thickening, Lopez Catheter is in place, compatible with cystitis. Dependent atelectasis in both lung basis, fatty liver otherwise no acute findings. The patient is feeling somewhat better. REVIEW OF SYSTEMS: CONSTITUTIONAL: No fever, no chills. HEENT: Normal. ENDOCRINE: No weight gain, no weight loss. CVS: No angina symptoms. No CHF symptoms. No palpitations. No atypical chest pain for CAD. No shortness of breath. No PND, no orthopnea. RESPIRATORY: No cough, no hemoptysis. GI: No nausea, no vomiting. No abdominal pain. : No hematuria. No polyuria. MUSCULOSKELETAL: No joint swelling. PSYCHIATRIC: Not anxious. No depression. No suicidal thoughts. No homicidal thoughts. SKIN: Intact. No rash. PHYSICAL EXAMINATION: V/S: blood pressure 125/80, respiratory rate 20, heart rate 105, temperature 98.1 with saturation 94%. GENERAL: Cachetic man laying in the bed. HEENT: Normocephalic, atraumatic. Mucosa dry. Pallor positive. No icterus. NECK: Supple. No JVD, no carotid bruit. No lymphadenopathy. LUNGS: Decreased and clear to auscultation. No rales or rhonchi. HEART: S1, S2 normal. No S3. No murmur, gallop or regurgitation. ABDOMEN: Soft, nontender. Bowel sounds active. No rigidity. No rebound or guarding. No CVA tenderness. EXTREMITIES: No cyanosis, clubbing or pedal edema. MUSCULOSKELETAL: No joint swelling. NEUROLOGIC: Awake, alert, oriented times three. No focal deficit. LYMPHATIC: No lymph nodes palpable. SKIN: Intact. LABS: WBC 8.53, hgb 11.2, hct 33.0, plt count 359, sodium 137, potassium 4.2, chloride 106, bicarb 22, BUN 14, creatinine 0.81 and glucose 111. ASSESSMENT: 1. Urinary tract infection organism Enterobacter Cloacae 2. Neurogenic bladder 3. Hyponatremia which is better PLAN: 1. Continue the Rocephin 1 gram daily 2. IV fluids 3. Ultrasound of the gallbladder for elevated liver enzymes TIME SPENT: More than 35 minutes MTDD
--- NOTE | 2017-12-06 14:55 | DS ---
DATE OF SERVICE: 12/04/17 FINAL DIAGNOSIS: 1. Status post hyponatremia which is improved most likely from the dehydration 2. Urinary retention needing the Lopez Catheter 3. Urinary tract infection Enterobacter Cloacae 4. Alcohol abuse 5. Fatty liver 6. UTI 7. CAD 8. Dyslipidemia 9. Hypertension 10.Headaches 11.COPD 12.Neurogenic bladder 13.Anxiety 14.Substance use with tobacco and alcohol DISCHARGE INSTRUCTIONS: Discharge the patient home. Lopez Catheter care. Followup with Dr. Johnson on December 13 as scheduled. Take disc of CT of abdomen and pelvic. Dr. Dodge on SaturdayDecember 16. If unable to keep the appointment please reschedule. Continue the rest of the home medications. MEDICATIONS AT DISCHARGE: Xanax Metoprolol Tartrate 25mg PO daily Cardizem Cipro NEW PRESCRIPTIONS: Cipro 250mg twice a day for 5 days Increase Cardizem 260mg PO twice a day DIET INSTRUCTIONS: Cardiac and healthy ACTIVITY: As tolerated DISEASE SPECIFIC EDUCATION: Recurrent urinary tract infection Antibiotic use and diarrhea been discussed HOSPITAL COURSE: Dario St who is a 57 year old male with a history of neurogenic bladder and with the bladder stimulator who has been followed by Dr. Johnson at [facility]. The patient been having some problem with his pacemaker for the bladder and he had followup with urologist on December 13 but the patient has to come to the emergency room as the patient was not able to urinate. The patient was seen by the ER physician Dr. Mancia. The patient has to have a catheter put in. WBC was normal. Sodium 125. AST 135, ALT 82. U/A shows nitrates positive and leukocyte esterase. Drug screen was positive for the benzo and plasma alcohol 146. At that time the patient was admitted to the hospital as the patient has a neurogenic bladder, urinary retention, recurrent tract infection, hyponatremia and alcohol intoxication. The patient was started on the IV fluids , Vitamins with the Thiamine and lithium was given. With the elevated liver enzymes CT abdomen and pelvis showed the gallbladder mass 4cm. There was a small mass between the gallbladder and the liver and they suggested a CT abdomen and pelvis with contrast. CT chest was done in order to rule out any lung mass because of the hyponatremia which did show coronary artery disease but no infiltrate and no mass. CT abdomen and pelvis done with contrast showed some gallbladder wall thickening and some renal mass like lesion which maybe questionable for inflammation versus pyelonephritis versus malignancy. Thickened urinary bladder wall. The patient was discussed about these findings and suggested given the patient history which may result in malignancy and patient was strictly advised to have followup with Dr. Johnson at the [place] who is a urologist at the [facility]. Appointment being made again December 13. The patient was given the reports and the disc. The patient been up and about walking and did not have any problems so he is being discharged today home. TIME SPENT: More than 65 minutes. PIOTR
== END 2017-12-04 09:55 | disposition home or self-care (01) | DRG 948 ==
LOC: ED 19:33 → MEDSURG B 22:43
PROVIDERS: ADMIT Emergency Medicine; ATTEND Emergency Medicine
DX: R53.1 Weakness (principal); N17.9 Acute kidney failure, unspecified; N39.0 Urinary tract infection, site not specified; J98.11 Atelectasis; E87.1 Hypo-osmolality and hyponatremia; B96.89 Other specified bacterial agents as the cause of diseases classified elsewhere; R33.9 Retention of urine, unspecified; N31.9 Neuromuscular dysfunction of bladder, unspecified; I10 Essential (primary) hypertension; I25.10 Atherosclerotic heart disease of native coronary artery without angina pectoris; J44.9 Chronic obstructive pulmonary disease, unspecified; E78.5 Hyperlipidemia, unspecified; E87.8 Other disorders of electrolyte and fluid balance, not elsewhere classified; E86.0 Dehydration; R51 Headache; R74.8 Abnormal levels of other serum enzymes; K76.0 Fatty (change of) liver, not elsewhere classified; M54.9 Dorsalgia, unspecified; M47.9 Spondylosis, unspecified; M19.90 Unspecified osteoarthritis, unspecified site; F41.8 Other specified anxiety disorders; F10.10 Alcohol abuse, uncomplicated; Z72.0 Tobacco use; Z72.89 Other problems related to lifestyle
CPT/HCPCS: 36415; 80048; 80053; 80306; 80307; 81001; 82550; 84484; 85007; 85025; 87081; 87086; 87186; 93005; 93010; 94640; 96361; 96365; 97802; 99284

== ENCOUNTER 2018-01-13 07:27 | Emergency (ER) | payer MEDICAID, OTHER ==
[2018-01-13 07:34] VITALS: BP 144/91; TEMP 97.4; BMI 22.4
[2018-01-13] MEDS ORDERED: URO-JET MUCOUSMEMB ONE (07:41)
--- NOTE | 2018-01-13 08:02 | ED.PDOC ---
General ED Provider: Dr. MARY LOU CARRIZALES Chief Complaint: Urinary Problem Stated Complaint: pt has a neurogenic bladder has a device which having a low battery Time Seen by Physician: 07:40 (seen with ashia) Mode of Arrival: Walk-In Information Source: Patient Exam Limitations: No limitations Primary Care Provider: SOFIA QUIROGA Nursing and Triage Documentation Reviewed and Agree: Yes Does patient meet sepsis criteria?: No System Inflammatory Response Syndrome: Not Applicable Sepsis Protocol: For patient's 13 years and over: Temp is 96.8 and below OR 101 and greater Pulse >90 BPM Resp >20/minute Acutely Altered Mental Status Are patient's symptoms suggestive of a new infection, such as: -Pneumonia -Skin, Soft Tissue -Endocarditis -UTI -Bone, Joint Infection -Implantable Device -Acute Abdominal Infection -Wound Infection -Meningitis -Blood Stream Catheter Infection -Unknown Complaint Exam - Complaint/Exam Patient Complains of: Reports: Dysuria Onset/Duration: 1 day ago Symptoms Are: Still present Timing: Constant Initial Severity: Mild Current Severity: Mild Location of Pain: Reports: Suprapubic Character: Reports: Cramping, Bloody urine (on 1 occasion only SMALL AMOUNT OF COAGULATED BLOOD WAS NOTED .) Aggravating: Reports: Voiding (PT SELF CATH'S ) Associated Signs and Symptoms: Denies: Diaphoresis, Back pain, Fever, Hematuria , Dysuria, Constipation, Blood in stool, Rectal pain, Appetite change, Nausea, Vomiting, Penile swelling, Penile discharge, Decreased urine output, Increased urine frequency, Increased thirst, Decreased activity, Lethargy, Scrotal pain, Scrotal swelling, Abdominal Pain Related History: Reports: Similar episode Testicular Torsion Risk Factors: Reports: None Surgical Obstruction Risk Factors: Reports: None Related Surgical History: Reports: None Abdominal Findings: Present: None Genitalia Exam: Present: Normal findings Differential Diagnoses: Other (NEUROGENIC BLADDER ) Review of Systems - Review Of Systems Constitutional: Reports: No symptoms Eyes: Reports: No symptoms Ears, Nose, Mouth, Throat: Reports: No symptoms Respiratory: Reports: No symptoms Cardiac: Reports: No symptoms GI: Reports: No symptoms : Reports: Hematuria Musculoskeletal: Reports: No symptoms Skin: Reports: No symptoms Neurological: Reports: No symptoms Endocrine: Reports: No symptoms Hematologic/Lymphatic: Reports: No symptoms All Other Systems: Reviewed and Negative Past Medical History - Past Medical History Endocrine: Reports: Dyslipidemia Cardiovascular: Reports: Hypertension Respiratory: Reports: None Hematological: Reports: None Gastrointestinal: Reports: None Genitourinary: Reports: CKD, Other (urinary retention) Neuro/Psych: Reports: Anxiety, Depression, Other (Alcoholism) Musculoskeletal: Reports: Back Pain, Other (KNEE EFFUSION IN PAST) Cancer: Reports: None Other Pertinent Past Medical History: implanted device rt back for neurogenic bladder - Surgical History General Surgical History: Reports: Other (mplanted device rt back for neurogenic bladder) - Family History Family History: Reports: Unknown - Social History Smoking Status: Current every day smoker, Heavy tobacco smoker Hx Substance Use: Yes Alcohol Screening: Heavy Physical Exam - Physical Exam Appearance: Well-appearing, No pain distress, Well-nourished Eyes: WARREN, EOMI, Conjunctiva clear ENT: Ears normal, Nose normal, Oropharynx normal Respiratory: Airway patent, Breath sounds clear, Breath sounds equal, Respirations nonlabored Cardiovascular: RRR, Pulses normal, No rub, No murmur GI/: Tender (SUPRA PUBIC) Musculoskeletal: Normal strength, ROM intact, No edema, No calf tenderness Skin: Warm, Dry, Normal color Neurological: Sensation intact, Motor intact, Reflexes intact, Cranial nerves intact, Alert, Oriented Psychiatric: Affect appropriate, Mood appropriate Physician Notification - Case Discussed Physician Notified: tutu GRIER Time of Notification: 10:20 (PT CAN GO HOME WITH URINARY CATHER AND ANTIBIOTIC, MUST CALL OFFICE FOR NEXT APPOINTMENT) Critical Care Note - Critical Care Note Total Time (mins): 0 Course - Course Hematology/Chemistry: 01/13/18 08:10 01/13/18 08:10 Orders, Labs, Meds: Lab Review 01/13/18 01/13/18 01/13/18 08:10 08:10 08:10 WBC 14.46 H RBC 3.75 L Hgb 12.6 L Hct 35.6 L MCV 94.9 H MCH 33.6 H MCHC 35.4 RDW Coeff of Stalin 15.3 H Plt Count 350 Immature Gran % (Auto) 0.5 Neut % (Auto) 84.5 Lymph % (Auto) 8.0 L Reagan % (Auto) 6.6 Eos % (Auto) 0.1 Baso % (Auto) 0.3 Immature Gran # (Auto) 0.1 Neut # (Auto) 12.2 H Lymph # (Auto) 1.2 [place] # (Auto) 1.0 Eos # (Auto) 0.0 Baso # (Auto) 0.1 PT 9.7 INR 0.97 APTT 28.2 Sodium 134 L Potassium 4.1 Chloride 97 L Carbon Dioxide 25 Anion Gap 16.1 BUN 6 L Creatinine 0.90 Estimated GFR (MDRD) 87.00 BUN/Creatinine Ratio 6.66 Glucose 105 H Calcium 9.7 Total Bilirubin 0.5 AST 46 H ALT 31 Alkaline Phosphatase 64 Total Protein 7.8 Albumin 3.5 Globulin 4.3 Albumin/Globulin Ratio 0.81 Urine Color Urine Clarity Urine pH Ur Specific [place] Urine Protein Urine Glucose (UA) Urine Ketones Urine Blood Urine Nitrite Urine Bilirubin Urine Urobilinogen Ur Leukocyte Esterase Urine Microscopic RBC Urine Microscopic WBC Ur Squamous Epith Cells Urine Bacteria 01/13/18 08:10 WBC RBC Hgb Hct MCV MCH MCHC RDW Coeff of Stalin Plt Count Immature Gran % (Auto) Neut % (Auto) Lymph % (Auto) [place] % (Auto) Eos % (Auto) Baso % (Auto) Immature Gran # (Auto) Neut # (Auto) Lymph # (Auto) Reagan # (Auto) Eos # (Auto) Baso # (Auto) PT INR APTT Sodium Potassium Chloride Carbon Dioxide Anion Gap BUN Creatinine Estimated GFR (MDRD) BUN/Creatinine Ratio Glucose Calcium Total Bilirubin AST ALT Alkaline Phosphatase Total Protein Albumin Globulin Albumin/Globulin Ratio Urine Color Brown Urine Clarity Turbid Urine pH 6.0 Ur Specific [place] 1.010 Urine Protein 3+ Urine Glucose (UA) Negative Urine Ketones 1+ Urine Blood 3+ Urine Nitrite Negative Urine Bilirubin 3+ Urine Urobilinogen 2.0 Ur Leukocyte Esterase 3+ Urine Microscopic RBC Tntc Urine Microscopic WBC Tntc Ur Squamous Epith Cells Not present Urine Bacteria 2+ Orders Category Date Time Status CBC W/ AUTO DIFF Stat LAB 01/13/18 08:10 Completed COMPREHENSIVE METABOLIC PANEL Stat LAB 01/13/18 08:10 Completed PARTIAL THROMBOPLASTIN TIME Stat LAB 01/13/18 08:10 Completed PT WITH INR Stat LAB 01/13/18 08:10 Completed URINALYSIS C & S IF INDICATED Stat LAB 01/13/18 08:10 Completed URINE CULTURE Stat LAB 01/13/18 08:10 Received Lidocaine HCl [Uro-Jet] MEDS 01/13/18 07:41 Discontinued 10 ml MUCOUSMEMB .STK-MED ONE Lidocaine HCl [Uro-Jet] MEDS 01/13/18 08:20 Discontinued 10 ml MUCOUSMEMB ONCE STA CT ABD/PEL WO RENAL STONE PROT Stat RADS 01/13/18 08:07 Completed Medications Discontinued Medications Generic Name Dose Route Start Last Admin Trade Name Marilyn PRN Reason Stop Dose Admin Lidocaine HCl 10 ml 01/13/18 08:20 01/13/18 07:40 Uro-Jet MUCOUSMEMB 01/13/18 08:21 10 ml ONCE STA Administration Vital Signs: Temp Pulse Resp BP Pulse Ox 01/13/18 07:27 97.4 F L 79 20 144/91 H 95 Departure - Departure Time of Disposition: 10:21 (UROLOGY IS AWARE OF 2250 CC OF URINE RETENTION) Disposition: HOME SELF-CARE Discharge Problem: Urinary symptoms, Urinary retention Hematuria Qualifiers: Hematuria type: gross Qualified Code(s): R31.0 - Gross hematuria Instructions: Urinary Retention in Men (ED), Hematuria (ED) Condition: Good Pt referred to PMD for follow-up: Yes IPMP verified?: No Allergies/Adverse Reactions: Allergies No Known Allergies Allergy (Verified 01/13/18 07:34) Home Medications: Ambulatory Orders Alprazolam [Xanax] 0.5 mg PO TID PRN 08/18/15 Hydrocodone Bit/Acetaminophen [[place] 5-325] 1 - 2 tab PO Q6HR PRN #12 tablet Metoprolol Tartrate [Lopressor] 25 mg PO DAILY 06/26/16 Diltiazem HCl [Cardizem] 60 mg PO Q12HR #60 tablet 12/04/17
[2018-01-13] MEDS ORDERED: URO-JET MUCOUSMEMB STA (08:20)
--- NOTE | 2018-01-13 08:58 | CT ---
EXAM: CT Abdomen without contrast. CT Pelvis without contrast. HISTORY: Gross hematuria. Neurogenic bladder. COMPARISON: CT 12/03/2017. TECHNIQUE: Multiple axial images of the abdomen and pelvis were obtained without intravenous contras t. Images were reformatted in the sagittal and coronal plane. FINDINGS: Please note that evaluation of the abdominal and pelvic structures is limited due to lack of intravenous contrast. No acute abnormality identified in the lung bases. Degenerative changes present in the spine. Sacra l nerve root stimulator noted on the right. The liver is diffusely low density. There may be some sludge or stones in the gallbladder. Pancreas , spleen, and adrenal glands demonstrate normal contour. No calcified renal stones detected. There is mild pelvocaliectasis, slightly greater on the right. No obstructing calculi are seen. Urinary bladder is moderately distended with circumferential wall th ickening. Lopez catheter present within the bladder. Some lobular high density within the left post erior bladder. There is no evidence for bowel obstruction. The appendix is normal. Atherosclerotic calcifications present. No free fluid or free air identified. Tiny fat-containing umbilical hernia is present. IMPRESSION: 1. Distended thick-walled bladder, consistent with history of neurogenic bladder. High-density cont ents in the left posterior bladder likely represent blood clots. Mass not excluded. 2. Mild bilateral pelvocaliectasis likely due to #1 above. 3. Fatty liver.
== END 2018-01-13 10:40 | disposition home or self-care (01) ==
LOC: ED 07:27
DX: R31.0 Gross hematuria (principal); N31.9 Neuromuscular dysfunction of bladder, unspecified; R30.0 Dysuria; R31.9 Hematuria, unspecified; R33.9 Retention of urine, unspecified
CPT/HCPCS: 36415; 74176; 80053; 81001; 85025; 85610; 85730; 87086; 87186; 99283

== ENCOUNTER 2018-01-15 11:10 | Emergency (ER) ==
[2018-01-15 11:11] VITALS: BMI 22.4
[2018-01-15 11:16] VITALS: BP 131/93; TEMP 99.5
--- NOTE | 2018-01-15 11:28 | ED.PDOC ---
General ED Provider: Dr. MARY LOU CARRIZALES Chief Complaint: Urinary Problem Stated Complaint: floey cath wont drain today unable to get his meds Time Seen by Physician: 11:23 (seen with) Mode of Arrival: Walk-In Information Source: Patient Exam Limitations: No limitations Primary Care Provider: SOFIA QUIROGA Nursing and Triage Documentation Reviewed and Agree: Yes Does patient meet sepsis criteria?: No If yes, has appropriate treatment been initiated?: No System Inflammatory Response Syndrome: Not Applicable Sepsis Protocol: For patient's 13 years and over: Temp is 96.8 and below OR 101 and greater Pulse >90 BPM Resp >20/minute Acutely Altered Mental Status Are patient's symptoms suggestive of a new infection, such as: -Pneumonia -Skin, Soft Tissue -Endocarditis -UTI -Bone, Joint Infection -Implantable Device -Acute Abdominal Infection -Wound Infection -Meningitis -Blood Stream Catheter Infection -Unknown Complaint Exam - Complaint/Exam Patient Complains of: Reports: Dysuria Onset/Duration: 1 week seen by myself a few days ago unable to get his meds Symptoms Are: Still present Timing: Intermittent Initial Severity: Mild Current Severity: None Location of Pain: Reports: None Aggravating: Reports: None Alleviating: Reports: None Testicular Torsion Risk Factors: Reports: None Surgical Obstruction Risk Factors: Reports: None Differential Diagnoses: Other (hematuria) Review of Systems - Review Of Systems Constitutional: Reports: No symptoms Eyes: Reports: No symptoms Ears, Nose, Mouth, Throat: Reports: No symptoms Respiratory: Reports: No symptoms Cardiac: Reports: No symptoms GI: Reports: No symptoms : Reports: Hematuria Musculoskeletal: Reports: No symptoms Skin: Reports: No symptoms Neurological: Reports: No symptoms Endocrine: Reports: No symptoms Hematologic/Lymphatic: Reports: No symptoms All Other Systems: Reviewed and Negative Past Medical History - Past Medical History Previously Healthy: Yes Endocrine: Reports: Dyslipidemia Cardiovascular: Reports: Hypertension Respiratory: Reports: None Hematological: Reports: None Gastrointestinal: Reports: None Genitourinary: Reports: CKD, Other (urinary retention) Neuro/Psych: Reports: Anxiety, Depression, Other (Alcoholism) Musculoskeletal: Reports: Back Pain, Other (KNEE EFFUSION IN PAST) Cancer: Reports: None Other Pertinent Past Medical History: implanted device rt back for neurogenic bladder - Surgical History General Surgical History: Reports: Other (mplanted device rt back for neurogenic bladder) - Family History Family History: Reports: Unknown - Social History Smoking Status: Current every day smoker, Heavy tobacco smoker Hx Substance Use: Yes Alcohol Screening: Heavy Physical Exam - Physical Exam Appearance: Well-appearing, No pain distress, Well-nourished Eyes: WARREN, EOMI, Conjunctiva clear ENT: Ears normal, Nose normal, Oropharynx normal Respiratory: Airway patent, Breath sounds clear, Breath sounds equal, Respirations nonlabored Cardiovascular: RRR, Pulses normal, No rub, No murmur GI/: Soft, Nontender, No masses, Bowel sounds normal, No Organomegaly Musculoskeletal: Normal strength, ROM intact, No edema, No calf tenderness Skin: Warm, Dry, Normal color Neurological: Sensation intact, Motor intact, Reflexes intact, Cranial nerves intact, Alert, Oriented Psychiatric: Affect appropriate, Mood appropriate Critical Care Note - Critical Care Note Total Time (mins): 0 Course - Course Vital Signs: Temp Pulse Resp BP Pulse Ox 01/15/18 11:11 99.5 F 100 H 18 131/93 H 98 Departure - Departure Time of Disposition: 11:27 Disposition: HOME SELF-CARE Discharge Problem: Urinary tract infectious disease Hematuria Qualifiers: Hematuria type: gross Qualified Code(s): R31.0 - Gross hematuria Instructions: Urinary Tract Infection in Men (ED), Hematuria (ED) Condition: Good Pt referred to PMD for follow-up: Yes IPMP verified?: No Additional Instructions: Please call your Family Physician as soon as possible to schedule a follow-up appointment. Allergies/Adverse Reactions: Allergies No Known Allergies Allergy (Verified 01/15/18 11:16) Home Medications: Ambulatory Orders Alprazolam [Xanax] 0.5 mg PO TID PRN 08/18/15 Hydrocodone Bit/Acetaminophen [[place] 5-325] 1 - 2 tab PO Q6HR PRN #12 tablet Metoprolol Tartrate [Lopressor] 25 mg PO DAILY 06/26/16 Diltiazem HCl [Cardizem] 60 mg PO Q12HR #60 tablet 12/04/17
[2018-01-15] MEDS ORDERED: ROCEPHIN IM STA (11:37)
[2018-01-15] MEDS ORDERED: LIDOCAINE HCL 1% SDV IM STA (11:37)
== END 2018-01-15 12:04 | disposition home or self-care (01) ==
LOC: ED 11:10
DX: R30.0 Dysuria (principal); R31.0 Gross hematuria; N39.0 Urinary tract infection, site not specified
CPT/HCPCS: 96372; 99283

== ENCOUNTER 2018-08-30 22:21 | Emergency (ER) ==
[2018-08-30] MEDS ORDERED: TORADOL IVP STA (22:34)
[2018-08-30 22:35] VITALS: BP 137/101; TEMP 98.8; BMI 20.7
--- NOTE | 2018-08-30 22:36 | ED.PDOC ---
General ED Provider: Dr. RAYMUNDO PATTERSON Stated Complaint: 3 week history of right neck pain. pain got worse today but did not take any medication for the pain. The pain radiates to the right ear and is worse with chewing. Time Seen by Physician: 22:34 Mode of Arrival: Ambulance Information Source: Patient Exam Limitations: No limitations Primary Care Provider: SOFIA QUIROGA Nursing and Triage Documentation Reviewed and Agree: Yes Does patient meet sepsis criteria?: No System Inflammatory Response Syndrome: Not Applicable Sepsis Protocol: For patient's 13 years and over: Temp is 96.8 and below OR 101 and greater Pulse >90 BPM Resp >20/minute Acutely Altered Mental Status Are patient's symptoms suggestive of a new infection, such as: -Pneumonia -Skin, Soft Tissue -Endocarditis -UTI -Bone, Joint Infection -Implantable Device -Acute Abdominal Infection -Wound Infection -Meningitis -Blood Stream Catheter Infection -Unknown Musculoskeletal Complaint Exam - Neck Pain Complaint/Exam Mechanism of Injury: Reports: No known trauma Onset/Duration: 3 weeks Symptoms Are: Still present Timing: Constant Episodes Lasting: Weeks Initial Severity: Moderate Current Severity: Severe Location: Reports: Discrete (Right side of neck anteriorly ) Character: Reports: Aching, Throbbing Aggravating: Reports: Position, Movement Associated Signs and Symptoms: Reports: Swelling. Denies: Redness, Bruising, Fever, Nuchal rigidity, Headache, Paresthesia Meningitis Risk Factors: Reports: None Cervical Spine Injury Risk Factors: Denies: Post-Midline CS tender, Evidence of intoxication, Altered LOC, Focal neuro deficit, Distracting injuries Carotid Bruit Present: No Pain on Passive Flexion: No Positive Kernig's Sign: No Pain Located at: anterior neck Tenderness: Present: Paraspinal Focal Weakness: Present: None Focal Sensory Loss: Reports: None Nexus Low Risk Criteria: No post-midline CS tender, No evidence of intoxicat., No Altered LOC, No focal neuro deficit, No distracting injuries Neck Picture: 1 - pain and tenderness to palpation Differential Diagnoses: Dystonia, Sprain, Strain Review of Systems - Review Of Systems Constitutional: Reports: No symptoms Eyes: Reports: No symptoms Ears, Nose, Mouth, Throat: Reports: No symptoms Respiratory: Reports: No symptoms Cardiac: Reports: No symptoms GI: Reports: No symptoms : Reports: No symptoms Musculoskeletal: Reports: Neck pain (mostly on the right side ) Skin: Reports: No symptoms Neurological: Reports: Anxiety Endocrine: Reports: No symptoms Hematologic/Lymphatic: Reports: No symptoms All Other Systems: Reviewed and Negative Past Medical History - Past Medical History Previously Healthy: Yes Endocrine: Reports: Dyslipidemia Cardiovascular: Reports: Hypertension, A-Fib Respiratory: Reports: None Hematological: Reports: None Gastrointestinal: Reports: None Genitourinary: Reports: CKD, Other (urinary retention) Neuro/Psych: Reports: Anxiety, Depression, Other (Alcoholism) Musculoskeletal: Reports: Back Pain, Other (KNEE EFFUSION IN PAST) Cancer: Reports: None Other Pertinent Past Medical History: implanted device rt back for neurogenic bladder - Surgical History General Surgical History: Reports: Other (mplanted device rt back for neurogenic bladder) - Family History Family History: Reports: Unknown - Social History Smoking Status: Current every day smoker, Heavy tobacco smoker Hx Substance Use: Yes Alcohol Screening: Heavy Physical Exam - Physical Exam Appearance: Ill-appearing Ill-appearing: Mild Pain Distress: Severe ENT: Ears normal, Nose normal, Oropharynx normal Neck: Supple Respiratory: Airway patent, Breath sounds clear, Breath sounds equal, Respirations nonlabored Cardiovascular: RRR, Pulses normal, No rub, No murmur GI/: Soft, Nontender, No masses, Bowel sounds normal, No Organomegaly Musculoskeletal: Normal strength, ROM intact, No edema, No calf tenderness Skin: Warm, Dry, Normal color Neurological: Sensation intact, Motor intact, Reflexes intact, Cranial nerves intact, Alert, Oriented Psychiatric: Anxious Interpretation - Radiology Interpretation Radiology Interpretation By: Radiologist Radiology Results: Negative Exam Interpreted: CT Scan - Bar Host/Hostess Rate: Normal Rhythm: Sinus Ectopy: None - EKG Interpretation Time of EKG #1: 22:48 Rate: Normal Rhythm: Sinus Ectopy: None [place]: NL ST Segment: Normal Interpretation: Normal EKG Critical Care Note - Critical Care Note Total Time (mins): 0 Course - Course Hematology/Chemistry: 08/30/18 22:35 08/30/18 22:35 Orders, Labs, Meds: Lab Review 08/30/18 08/30/18 22:35 22:35 WBC 8.91 RBC 3.68 L Hgb 12.7 L Hct 37.4 L MCV 101.6 H MCH 34.5 H MCHC 34.0 RDW Coeff of Stalin 13.1 Plt Count 235 Immature Gran % (Auto) 0.4 Neut % (Auto) 59.8 Lymph % (Auto) 25.6 [place] % (Auto) 11.8 H Eos % (Auto) 1.5 Baso % (Auto) 0.9 Immature Gran # (Auto) 0.0 Neut # (Auto) 5.3 Lymph # (Auto) 2.3 [place] # (Auto) 1.1 Eos # (Auto) 0.1 Baso # (Auto) 0.1 Sodium 136.7 Potassium 3.44 L Chloride 101.2 Carbon Dioxide 26.1 Anion Gap 12.84 BUN 12.1 Creatinine 0.92 Estimated GFR (MDRD) 85.00 BUN/Creatinine Ratio 13.15 Glucose 87.9 Calcium 9.36 Total Bilirubin 0.57 AST 79.6 H ALT 48.5 Alkaline Phosphatase 50.0 Total Creatine Kinase 67.6 Troponin I < 0.012 Total Protein 7.69 Albumin 4.18 Globulin 3.51 Albumin/Globulin Ratio 1.19 Orders Category Date Time Status EKG-(ED ONLY) Stat CARDIO 08/30/18 22:22 Ordered ED IV/MEDIPORT/POWERPORT .ONCE EMERGENCY 08/30/18 22:33 Active CBC W/ AUTO DIFF Stat LAB 08/30/18 22:35 Completed COMPREHENSIVE METABOLIC PANEL Stat LAB 08/30/18 22:35 Completed CREATINE KINASE Stat LAB 08/30/18 22:35 Completed TROPONIN I Stat LAB 08/30/18 22:35 Completed 0.9 % Sodium Chloride [Saline Flush] MEDS 08/30/18 22:34 Ordered 1 syr IVF PRN PRN Ketorolac Tromethamine [Toradol] MEDS 08/30/18 22:34 Discontinued 30 mg IVP ONCE STA CT CERVICAL SPINE W/O CONTRAST Stat RADS 08/30/18 22:[address] CHEST W/O CONTRAST Stat RADS 08/30/18 22:32 Completed Medications Generic Name Dose Route Start Last Admin Trade Name Freq PRN Reason Stop Dose Admin Sodium Chloride 1 syr 08/30/18 22:34 08/30/18 22:49 Saline Flush IVF 1 syr PRN PRN Administration To flush IV Discontinued Medications Generic Name Dose Route Start Last Admin Trade Name Freq PRN Reason Stop Dose Admin Ketorolac Tromethamine 30 mg 08/30/18 22:34 08/30/18 22:49 Toradol IVP 08/30/18 22:35 30 mg ONCE STA Administration Vital Signs: Temp Pulse Resp BP Pulse Ox 08/30/18 22:22 98.8 F 96 H 20 137/101 H 98 Departure - Departure Time of Disposition: 00:49 Disposition: HOME SELF-CARE Discharge Problem: Neck pain Instructions: Chronic Neck Pain (DC) Condition: Fair Pt referred to PMD for follow-up: Yes IPMP verified?: No Additional Instructions: Take medications as prescribed Follow up with PCP in 3 days Allergies/Adverse Reactions: Allergies No Known Allergies Allergy (Verified 08/30/18 22:35) Home Medications: Ambulatory Orders Alprazolam [Xanax] 0.5 mg PO TID PRN 08/18/15 Hydrocodone Bit/Acetaminophen [[place] 5-325] 1 - 2 tab PO Q6HR PRN #12 tablet Metoprolol Tartrate [Lopressor] 25 mg PO DAILY 06/26/16 Diltiazem HCl [Cardizem] 60 mg PO Q12HR #60 tablet 12/04/17 Disposition Discussed With: Patient, Family
--- NOTE | 2018-08-31 00:33 | CT ---
EXAM: CT chest without contrast. HISTORY: Right neck pain. History of smoking. PROCEDURE: Contiguous axial CT images of the chest without contrast with coronal and sagittal reform ats. FINDINGS: The heart is within normal limits in size. The thoracic aorta is within normal limits in d iameter. There are calcified mediastinal and hilar lymph nodes and calcified granulomas in the lungs . There is minimal right apical scarring. No infiltrate or consolidation. No evidence of lymphaden opathy or mass. There are degenerative changes in the spine. There are multiple old left rib fractu res. Redemonstrated is a distended bladder extending into the abdomen which is incompletely visualiz ed secondary to termination of image acquisition (comparison with CT of 04/09/2018). Impression: No acute cardiopulmonary disease. Right apical scarring. Old granulomatous disease. Multiple old left rib fractures. Distended bladder as described.
--- NOTE | 2018-08-31 00:35 | CT ---
Exam: CT cervical spine without contrast History: Right-sided neck pain Technique: [address] cervical spine with multiplanar reformations FINDINGS: Degenerative posterior listhesis of C5 measuring less than 3 mm. Normal alignment otherwi se. Vertebral body height is maintained. No fracture lines or suspicious bony lesions. Atheroscler otic calcification of the carotid arteries. Abundant upper cervical lymph nodes without pathologic e nlargement. C2-C3: No central canal or foraminal stenosis C3-C4: Posterior disc osteophyte with mild sac indentation. There is moderate right and severe left foraminal narrowing. C4-C5: Minor generalized disc bulge with mild sac indentation. Mild right and no left foraminal dilia rowing. C5-C6: Posterior disc osteophyte with moderate central canal narrowing degenerative posterior listhe sis of C5. Moderate right and no left foraminal narrowing. C6-C7: No central canal or foraminal stenosis C7-T1: Normal Impression: 1. No acute findings of the cervical spine 2. Multilevel degenerative change as described with varying degrees of central canal and formal sten osis as described. No severe central canal stenosis is appreciated.
== END 2018-08-31 00:58 | disposition home or self-care (01) ==
LOC: ED 22:21
DX: M54.2 Cervicalgia (principal); E78.5 Hyperlipidemia, unspecified; I10 Essential (primary) hypertension; N18.9 Chronic kidney disease, unspecified; F17.210 Nicotine dependence, cigarettes, uncomplicated; Z79.899 Other long term (current) drug therapy
CPT/HCPCS: 36415; 80053; 82550; 84484; 85025; 93005; 93010; 96374; 96375; 99283

== ENCOUNTER 2018-10-15 19:14 | Emergency (ER) ==
[2018-10-15 19:16] VITALS: BP 130/79; TEMP 98; BMI 22.4
[2018-10-15] MEDS ORDERED: PREDNISONE PO STA (19:56)
--- NOTE | 2018-10-15 19:57 | ED.PDOC ---
General ED Provider: Dr. RAYMUNDO PATTERSON Chief Complaint: Rash Stated Complaint: Itchy rash for the last few days on the arms bilaterally. Time Seen by Physician: 19:57 Mode of Arrival: Walk-In Information Source: Patient Primary Care Provider: SOFIA QUIROGA Nursing and Triage Documentation Reviewed and Agree: Yes Does patient meet sepsis criteria?: No System Inflammatory Response Syndrome: Not Applicable Sepsis Protocol: For patient's 13 years and over: Temp is 96.8 and below OR 101 and greater Pulse >90 BPM Resp >20/minute Acutely Altered Mental Status Are patient's symptoms suggestive of a new infection, such as: -Pneumonia -Skin, Soft Tissue -Endocarditis -UTI -Bone, Joint Infection -Implantable Device -Acute Abdominal Infection -Wound Infection -Meningitis -Blood Stream Catheter Infection -Unknown Review of Systems - Review Of Systems Constitutional: Reports: No symptoms Eyes: Reports: No symptoms Ears, Nose, Mouth, Throat: Reports: No symptoms Respiratory: Reports: No symptoms Cardiac: Reports: No symptoms GI: Reports: No symptoms : Reports: No symptoms Musculoskeletal: Reports: No symptoms Skin: Reports: Rash Neurological: Reports: Anxiety Endocrine: Reports: No symptoms Hematologic/Lymphatic: Reports: No symptoms All Other Systems: Reviewed and Negative Past Medical History - Past Medical History Previously Healthy: Yes Endocrine: Reports: Dyslipidemia Cardiovascular: Reports: Hypertension, A-Fib Respiratory: Reports: None Hematological: Reports: None Gastrointestinal: Reports: None Genitourinary: Reports: CKD, Other (urinary retention) Neuro/Psych: Reports: Anxiety, Depression, Other (Alcoholism) Musculoskeletal: Reports: Back Pain, Other (KNEE EFFUSION IN PAST) Cancer: Reports: None Other Pertinent Past Medical History: implanted device rt back for neurogenic bladder - Surgical History General Surgical History: Reports: Other (mplanted device rt back for neurogenic bladder) - Family History Family History: Reports: Unknown - Social History Smoking Status: Current every day smoker, Heavy tobacco smoker Hx Substance Use: Yes Alcohol Screening: Heavy - Immunizations Tetanus Shot up to Date: Yes Physical Exam - Physical Exam Appearance: Well-appearing, No pain distress, Well-nourished Eyes: WARREN, EOMI, Conjunctiva clear ENT: Ears normal, Nose normal, Oropharynx normal Respiratory: Airway patent, Breath sounds clear, Breath sounds equal, Respirations nonlabored Cardiovascular: RRR, Pulses normal, No rub, No murmur GI/: Soft, Nontender, No masses, Bowel sounds normal, No Organomegaly Musculoskeletal: Normal strength, ROM intact, No edema, No calf tenderness Skin: Warm, Dry, Normal color Neurological: Sensation intact, Motor intact, Reflexes intact, Cranial nerves intact, Alert, Oriented Psychiatric: Affect appropriate, Mood appropriate Critical Care Note - Critical Care Note Total Time (mins): 0 Course - Course Orders, Labs, Meds: Orders Category Date Time Status Prednisone MEDS 10/15/18 19:56 Discontinued 20 mg PO ONCE STA Medications Discontinued Medications Generic Name Dose Route Start Last Admin Trade Name Mairlyn PRN Reason Stop Dose Admin Prednisone 20 mg 10/15/18 19:56 10/15/18 19:59 Prednisone PO 10/15/18 19:57 20 mg ONCE STA Administration Vital Signs: Temp Pulse Resp BP Pulse Ox 10/15/18 19:14 98 F 72 16 130/79 97 Departure - Departure Time of Disposition: 20:00 Disposition: HOME SELF-CARE Discharge Problem: Pruritic rash Instructions: Dermatitis (ED) Condition: Stable Pt referred to PMD for follow-up: Yes IPMP verified?: No Additional Instructions: Take Medications as prescribed Follow up with your PCP in 3 days. Prescriptions: Prednisone 20 mg PO DAILYWM #5 tablet Allergies/Adverse Reactions: Allergies No Known Allergies Allergy (Verified 10/15/18 19:16) Home Medications: Ambulatory Orders Alprazolam [Xanax] 0.5 mg PO TID PRN 08/18/15 Hydrocodone Bit/Acetaminophen [[place] 5-325] 1 - 2 tab PO Q6HR PRN #12 tablet Metoprolol Tartrate [Lopressor] 25 mg PO DAILY 06/26/16 Diltiazem HCl [Cardizem] 60 mg PO Q12HR #60 tablet 12/04/17 Prednisone 20 mg PO DAILYWM #5 tablet 10/15/18 Disposition Discussed With: Patient
== END 2018-10-15 20:07 | disposition home or self-care (01) ==
LOC: ED 19:14
DX: R21 Rash and other nonspecific skin eruption (principal); L29.9 Pruritus, unspecified
CPT/HCPCS: 99282

== ENCOUNTER 2018-12-11 08:26 | Observation (INO) ==
--- NOTE | 2018-12-11 09:50 | CT ---
EXAM: CT Head HISTORY: Slurred speech 7 days COMPARISON: 04/06/2014 TECHNIQUE: CT head performed without contrast FINDINGS: There is no mass effect, midline shift, or intracranial hemmorhage. Coughlin white differenti ation is preserved. There is no extra-axial collection. The ventricles, sulci, and basal cisterns a re patent and symmetric. 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 Cerebral volume loss.There is no depressed calvarial fracture. The mastoid air cells are clear. The visualized paranasal sinuses are clear. There are i ntracranial atherosclerotic calcifications. IMPRESSION: 1. No acute intracranial abnormality. Consider MRI if there is clinical concern for acute ischemia. 2. 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 Cerebral volume loss.
--- NOTE | 2018-12-11 09:57 | CT ---
EXAM: CT chest without contrast HISTORY: Cough COMPARISON: 08/30/2018 TECHNIQUE: CT CHEST PERFORMED WITHOUT INTRAVENOUS CONTRAST. CORonal and sagittal reformatted images obtained. FINDINGS: Thyroid and thoracic inlet appear normal. Heart normal in size. No pericardial effusion. Aorta normal in caliber. Esophagus unremarkable. Evaluation for lymphadenopathy limited without c ontrast. No lymphadenopathy identified. Calcified lymph nodes, consistent with old granulomatous di sease. Liver diffusely decreased in attenuation. No acute abnormalities of the bones. Several katerine te left-sided rib fractures. [id number] change in the spine. Central airway patent. No airspace consolidation. No pleural effusion. No pneumothorax. Mild right apical scarring. Bilateral lower airway thickening. Granulomatous calcification. IMPRESSION: 1. Bilateral lower airway thickening, suggesting small airways infection/inflammation. 2. No airspace consolidation. 3. Findings of old granulomatous disease. 4. Hepatic steatosis.
[2018-12-11] MEDS ORDERED: SODIUM CHLORIDE 1,000 ML IV STA (10:12)
--- NOTE | 2018-12-11 10:19 | ED.PDOC ---
General ED Provider: Dr. MARY LOU CARRIZALES Chief Complaint: Weakness Stated Complaint: GENERALIZED WEAKNESS ABUSE'S ALCOHOL STATED CAN NOT STOP . IN ER FOR WEAKNESS NO MOTOR, SENSORY OR VISION RELATED ISSUES . Time Seen by Physician: 08:30 Mode of Arrival: Stretcher Information Source: Patient, EMT Exam Limitations: No limitations Primary Care Provider: SOFIA QUIROGA Nursing and Triage Documentation Reviewed and Agree: Yes Does patient meet sepsis criteria?: No System Inflammatory Response Syndrome: Not Applicable Sepsis Protocol: For patient's 13 years and over: Temp is 96.8 and below OR 101 and greater Pulse >90 BPM Resp >20/minute Acutely Altered Mental Status Are patient's symptoms suggestive of a new infection, such as: -Pneumonia -Skin, Soft Tissue -Endocarditis -UTI -Bone, Joint Infection -Implantable Device -Acute Abdominal Infection -Wound Infection -Meningitis -Blood Stream Catheter Infection -Unknown Neurological Complaint Exam - Headache Complaint/Exam Onset: Gradual Duration: WEEKS Symptoms Are: Still present Timing: Constant Episodes Lasting: Weeks Worst Headache Ever: No Current Severity: None Location: Diffuse Character: Reports: Dull Aggravating: Reports: None Alleviating: Reports: None Associated Signs and Symptoms: Denies: Dizziness, Seizure, Nausea, Vomiting, Sinus pressure, Fever, Neck pain, Neck stiffness, Decreased LOC, Visual changes Related History: Reports: Similar episode Related Surgical History: Reports: None Meningitis Risk Factors: Reports: None SDH Risk Factors: Reports: Male Temporal Arteritis Risk Factors: Reports: None Normal Head CT Within Last 12 Months: Yes Fundoscopic Exam: Present: Normal Findings Papilledema Present: No Temporal Artery Tenderness: Present: None Sinus Tenderness: Present: None TMJ Tenderness: Present: None Glascow Coma Scale (see protocol): 15 Meningeal Signs Positive: No ROM Limited In: No Limitiations Focal Weakness: Present: None Focal Sensory Loss: Present: None Gait: Normal Nystagmus Present: No Gag Reflex Present: No [id number]: Normal Findings Babinski Sign: Negative Right, Negative Left Differential Diagnoses: Other (ETOH ABUSE ) - Weakness Complaint/Exam Last Known Well: 1 MONTH AGO GETTING WEAKER Onset: Gradual Duration: 2 WEEKS Symptoms Are: Still present Timing: Constant Episodes Lasting: Weeks Initial Severity: Moderate Current Severity: Mild Character: Reports: Weak Aggravating: Reports: None Alleviating: Reports: None Associated Signs and Symptoms: Denies: Nausea, Vomiting, Diaphoresis, Tinnitus, Chest pain, Short of air, Palpitations, Unsteady gait, GI blood loss, Visual changes, Decreased oral intake, Change in medication, Change in diet, OTC meds, Loss of balance Related History: Similar episode Review of Systems - Review Of Systems Constitutional: Reports: Malaise, Weakness Eyes: Reports: No symptoms Ears, Nose, Mouth, Throat: Reports: No symptoms Respiratory: Reports: No symptoms Cardiac: Reports: No symptoms GI: Reports: No symptoms : Reports: No symptoms Musculoskeletal: Reports: No symptoms Skin: Reports: No symptoms Neurological: Reports: Headache Endocrine: Reports: No symptoms Hematologic/Lymphatic: Reports: No symptoms All Other Systems: Reviewed and Negative Past Medical History - Past Medical History Previously Healthy: Yes Endocrine: Reports: Dyslipidemia Cardiovascular: Reports: Hypertension, A-Fib Respiratory: Reports: None Hematological: Reports: None Gastrointestinal: Reports: None Genitourinary: Reports: CKD, Other (urinary retention) Neuro/Psych: Reports: Anxiety, Depression, Other (Alcoholism) Musculoskeletal: Reports: Back Pain, Other (KNEE EFFUSION IN PAST) Cancer: Reports: None Other Pertinent Past Medical History: implanted device rt back for neurogenic bladder - Surgical History General Surgical History: Reports: Other (mplanted device rt back for neurogenic bladder) - Family History Family History: Reports: Unknown - Social History Smoking Status: Current every day smoker, Heavy tobacco smoker Hx Substance Use: Yes Alcohol Screening: Heavy Physical Exam - Physical Exam Appearance: Well-appearing, No pain distress, Well-nourished Eyes: WARREN, EOMI, Conjunctiva clear ENT: Ears normal, Nose normal, Oropharynx normal Respiratory: Airway patent, Breath sounds clear, Breath sounds equal, Respirations nonlabored Cardiovascular: RRR, Pulses normal, No rub, No murmur GI/: Soft, Nontender, No masses, Bowel sounds normal, No Organomegaly Musculoskeletal: Normal strength, ROM intact, No edema, No calf tenderness Skin: Warm, Dry, Normal color Neurological: Sensation intact, Motor intact, Reflexes intact, Cranial nerves intact, Alert, Oriented Psychiatric: Affect appropriate, Mood appropriate - NIH Stroke Scale 1a. Level of Consciousness: 0=Alert and keenly responsive 1b. Level of Consciousness Questions: 0=Answers correctly to two questions 1c. Level of Consciousness Commands: 0=Performs two tasks correctly 2. Best Gaze: 0=Normal 3. Visual: 0=No visual loss 4. Facial Palsy: 0=Normal 5a. Motor Left Arm: 0=No drift,arm holds 90 degrees for 10 sec., leg 30 degrees for 5 sec. 5b. Motor Right Arm: 0=No drift,arm holds 90 degrees for 10 sec., leg 30 degrees for 5 sec. 6a. Motor Left Le=No drift,arm holds 90 degrees for 10 sec., leg 30 degrees for 5 sec. 6b. Motor Right Le=No drift,arm holds 90 degrees for 10 sec., leg 30 degrees for 5 sec. 7. Limb Ataxia: 0=Absent 8. Sensory: 0=Normal 10. Dysarthria: 0=Normal 11. Extincion and Inattention: 0=Normal Stroke Scale Total: 0 Re-Evaluation - Re-Evaluation Time of Re-Evaluation: 10:00 Status: Improved Vital Signs Stable: Yes Pain Level: 0 Appearance: NAD Lungs: Clear Skin: Warm and Dry Neuro: Alert and Oriented X3 CV: RRR Physician Notification - Case Discussed Physician Notified: ANTOLIN Time of Notification: 10:25 Admit/Transition Orders Entered by ED Provider: Yes Admit To: Inpatient Critical Care Note - Critical Care Note Total Time (mins): 0 Course - Course Hematology/Chemistry: 12/11/18 09:02 12/11/18 09:10 Orders, Labs, Meds: Lab Review 12/11/18 12/11/18 12/11/18 09:02 09:10 09:10 WBC 8.40 RBC 3.98 L Hgb 13.3 L Hct 38.7 L MCV 97.2 H MCH 33.4 H MCHC 34.4 RDW Coeff of Stalin 11.9 Plt Count 239 Immature Gran % (Auto) 0.2 Neut % (Auto) 53.2 Lymph % (Auto) 34.4 Whitfield % (Auto) 10.0 Eos % (Auto) 1.1 Baso % (Auto) 1.1 Immature Gran # (Auto) 0.0 Neut # (Auto) 4.5 Lymph # (Auto) 2.9 Whitfield # (Auto) 0.8 Eos # (Auto) 0.1 Baso # (Auto) 0.1 PT 9.8 INR 0.98 APTT 26.3 Puncture Site O2 Saturation ABG pH ABG pCO2 ABG pO2 ABG HCO3 ABG Total CO2 ABG Base Excess Neal Test O2 Delivery Device FiO2 % Sodium 140.2 Potassium 3.99 Chloride 101.0 Carbon Dioxide 26.0 Anion Gap 17.19 BUN 9.2 Creatinine 0.85 Estimated GFR (MDRD) 93.00 BUN/Creatinine Ratio 10.82 Glucose 94.1 Calcium 9.37 Total Bilirubin 0.41 AST 273.1 H ALT 153.7 H Alkaline Phosphatase 79.9 Total Creatine Kinase 121.2 CK-MB (CK-2) 1.550 CK-MB (CK-2) % 1.2700 Troponin I < 0.012 Total Protein 7.23 Albumin 3.97 Globulin 3.26 Albumin/Globulin Ratio 1.21 Plasma/Serum Alcohol 275.4 H 12/11/18 09:18 WBC RBC Hgb Hct MCV MCH MCHC RDW Coeff of Stalin Plt Count Immature Gran % (Auto) Neut % (Auto) Lymph % (Auto) Whitfield % (Auto) Eos % (Auto) Baso % (Auto) Immature Gran # (Auto) Neut # (Auto) Lymph # (Auto) Whitfield # (Auto) Eos # (Auto) Baso # (Auto) PT INR APTT Puncture Site R rad O2 Saturation 95.0 ABG pH 7.355 ABG pCO2 42.7 ABG pO2 82.0 L ABG HCO3 23.8 ABG Total CO2 25 ABG Base Excess -2 Neal Test + O2 Delivery Device Ra FiO2 % 21.0 Sodium Potassium Chloride Carbon Dioxide Anion Gap BUN Creatinine Estimated GFR (MDRD) BUN/Creatinine Ratio Glucose Calcium Total Bilirubin AST ALT Alkaline Phosphatase Total Creatine Kinase CK-MB (CK-2) CK-MB (CK-2) % Troponin I Total Protein Albumin Globulin Albumin/Globulin Ratio Plasma/Serum Alcohol Orders Category Date Time Status ABG DRAW REQUEST Stat CARDIO 12/11/18 09:18 Completed EKG-(ED ONLY) Stat CARDIO 12/11/18 09:02 Completed EKG-(ED ONLY) Stat CARDIO 12/11/18 10:13 Ordered ABG Stat LAB 12/11/18 09:18 Completed BLOOD ALCOHOL Stat LAB 12/11/18 09:10 Completed CBC W/ AUTO DIFF Stat LAB 12/11/18 09:02 Completed COMPREHENSIVE METABOLIC PANEL Stat LAB 12/11/18 09:10 Completed CREATINE KINASE Stat LAB 12/11/18 09:10 Completed PARTIAL THROMBOPLASTIN TIME Stat LAB 12/11/18 09:10 Completed PT WITH INR Stat LAB 12/11/18 09:10 Completed TROPONIN I Stat LAB 12/11/18 09:10 Completed URINALYSIS C & S IF INDICATED Stat LAB 12/11/18 09:02 Uncollected 0.9 % Sodium Chloride [Saline Flush] MEDS 12/11/18 09:02 Active 1 syr IVF PRN PRN Sodium Chloride 0.9% [Sodium Chloride] 1,000 ml MEDS 12/11/18 10:[address] CHEST W/O CONTRAST Stat RADS 12/11/18 09:[address] HEAD W/O CONTRAST Stat RADS 12/11/18 09:04 Completed Medications Generic Name Dose Route Start Last Admin Trade Name Freq PRN Reason Stop Dose Admin Sodium Chloride 1,000 mls @ 1,000 mls/hr 12/11/18 10:12 Sodium Chloride IV 12/11/18 11:11 BOLUS STA Sodium Chloride 1 syr 12/11/18 09:02 Saline Flush IVF PRN PRN To flush IV Vital Signs: Temp Pulse Resp BP Pulse Ox 12/11/18 08:27 97.6 F 70 20 143/89 H 96 Departure - Departure Time of Disposition: 10:23 Disposition: PLACED OBSERVATION Discharge Problem: Weakness, Alcohol abuse Instructions: Abuse of Alcohol (ED) Condition: Good Pt referred to PMD for follow-up: Yes IPMP verified?: No Additional Instructions: Please call your Family Physician as soon as possible to schedule a follow-up appointment. Allergies/Adverse Reactions: Allergies No Known Allergies Allergy (Verified 12/11/18 08:36) Home Medications: Ambulatory Orders Alprazolam [Xanax] 0.5 mg PO TID PRN 08/18/15 Hydrocodone Bit/Acetaminophen [[place] 5-325] 1 - 2 tab PO Q6HR PRN #12 tablet Metoprolol Tartrate [Lopressor] 25 mg PO DAILY 06/26/16 Diltiazem HCl [Cardizem] 60 mg PO Q12HR #60 tablet 12/04/17
[2018-12-11 11:06] VITALS: BMI 21.2
[2018-12-11] MEDS: FOLIC ACID 1 MG, INFUVITE ADULT 10 ML, THIAMINE 100 MG in SODIUM CHLORIDE 1,000 ML IV SCH ×2 (11:21→18:20)
[2018-12-11] MEDS: ATIVAN PO SCH ×3 (11:24→21:28)
[2018-12-11] MEDS ORDERED: THIAMINE ONE (18:13)
[2018-12-11] MEDS ORDERED: FOLIC ACID ONE (18:14)
[2018-12-11] MEDS ORDERED: INFUVITE ADULT IV ONE (18:15)
[2018-12-11] MEDS: CARDIZEM PO SCH (21:28)
[2018-12-12] MEDS ORDERED: THIAMINE ONE ×2 (01:53→09:53)
[2018-12-12] MEDS ORDERED: INFUVITE ADULT IV ONE ×3 (01:53→09:53)
[2018-12-12] MEDS ORDERED: FOLIC ACID ONE (02:07)
[2018-12-12] MEDS: FOLIC ACID 1 MG, INFUVITE ADULT 10 ML, THIAMINE 100 MG in SODIUM CHLORIDE 1,000 ML IV SCH ×2 (02:15→10:16)
[2018-12-12] MEDS: ATIVAN PO SCH ×2 (05:15→12:23)
[2018-12-12] MEDS ORDERED: LOPRESSOR PO SCH (09:00)
[2018-12-12] MEDS: CARDIZEM PO SCH (09:23)
--- NOTE | 2018-12-12 09:34 | US ---
EXAM: Renal ultrasound. History: Neurogenic bladder, bilateral renal masses. Comparison: CT abdomen pelvis 04/09/2018 Technique: Multiple sonographic images through the kidneys were obtained. Color duplex Doppler was used to interrogate vascular flow. Findings: The bladder is significantly distended. Neither ureteral jet was seen in the bladder. There is mild diffuse bladder wall thickening. The right kidney measures 11.2 cm in long length demonstrating increased cortical echogenicity withou t evidence for hydronephrosis, mass or shadowing calculus. The left kidney measures 10.2 cm in long length demonstrating increased cortical echogenicity without evidence for hydronephrosis, mass or shadowing calculus. Impression: 1. Increased cortical echogenicity of bilateral kidneys compatible with medical renal disease. 2. No hydronephrosis. 3. No renal masses. 4. A severely distended bladder and mild diffuse bladder wall thickening consistent with history of neurogenic bladder
[2018-12-12 13:52] VITALS: BP 155/87; TEMP 98.3
[2018-12-12] MEDS ORDERED: ATIVAN PO STA (16:17)
--- NOTE | 2018-12-24 14:51 | HP ---
DATE OF SERVICE: 12/11/18 CHIEF COMPLAINT: Weakness and alcohol abuse. HISTORY OF PRESENT ILLNESS: Mr. St is a patient of Anika Arredondo who presented to the emergency department with complaints of generalized weakness and alcohol abuse. He had acute altered mental status. He reports the weakness has gotten gradual over the last several weeks. He denied any dizziness. Denies any seizure. Denies any nausea, vomiting. He denied any focal weakness. He did have some slurred speech related to the alcohol abuse. He does have history of a neurogenic bladder and chronic back pain as well as anxiety and depression and chronic kidney disease. Decision was made to place the patient in observation to admit the patient for weakness and for evaluation. PAST MEDICAL HISTORY: Right knee effusion Neurogenic bladder Hyperlipidemia Hypertension Chronic kidney disease Anxiety Depression Alcoholism Chronic back pain Atrial fibrillation PAST SURGICAL HISTORY: Left ear surgery Bladder stimulator Testicle repaired as a child FAMILY HISTORY: Cardiac disease in father and brother Emphysema of the lung SOCIAL HISTORY: Current everyday smoker, heavy tobacco use, history of substance use and heavy alcohol use. MEDICATIONS: (CURRENT HOME) Xanax 0.25 mg tablet three times a day as needed Lopressor 25 mg tablet daily Cardizem 60 mg tablet every 12 hours ALLERGIES: NKDA REVIEW OF SYSTEMS: CONSTITUTIONAL: Denies any fevers, chills, nightsweats or weight changes. HEENT: No reports of headache. No reports of visual changes, nasal drainage or sore throat. CARDIOVASCULAR: He does have a history of atrial fibrillation. No reports of orthopnea or peripheral edema. LUNGS: No reports of shortness of breath, cough or congestion. There is a reported history of COPD in a prior office note found in our records. GI: No reports of abdominal pain, nausea, vomiting, diarrhea, constipation or blood in the stool. : He does have a history of neurogenic bladder. He does have a history of neurogenic bladder. MUSCULOSKELETAL: Does complain of generalized muscle weakness, does have a history of right knee effusion. NEUROLOGIC: No reports of dizziness. Does complain of generalized fatigue. No lateral weakness. PSYCHOLOGIC: Does have anxiety, depression. Did present with altered mental status on admission. ENDOCRINE: No reports of diabetes mellitus or thyroid disease. No reports of increased thirst, urination or heat or cold intolerance. INTEGUMENT: No reports of rashes, lesions or skin changes. PHYSICAL EXAMINATION: GENERAL: He was alert. He does appear a bit malnourished. VITAL SIGNS: Temperature 97.6, pulse rate 70, blood pressure 143/89, respirations 20. 02 sat 96% on room air. Height 5'5", weight 113 lbs. HEAD: Normocephalic, atraumatic. EYES: Pupils equal/reactive to light. Conjunctivae clear. Mucous membranes are moist. NECK: Supple. No thyromegaly. No carotid bruits. CARDIOVASCULAR: S1, S2, regular rate. No peripheral edema. LUNGS: Clear. Breathing regular. HEART: Audible and regular with good tones. No murmurs. ABDOMEN: Soft, nontender. No rigidity. NEUROLOGIC: Speech slurred. Mild confusion on admission. No lateral deficits. SKIN: Warm and dry. No rashes. No lesions. No wounds. On admission his hemoglobin 13.3, hematocrit 38.7, white count 8.4, platelet count 239. Sodium 140.2, potassium 3.99, creatinine 0.85, BUN 9.2, GFR 93. LFTs are high, AST 273, ALT 153.7, alkaline phosphatase 79.9, ammonia level is less than 8.7. CK-MB normal. Troponin negative. Amylase 142.2, lipase 183.5. Urinalysis negative. Toxicology serum alcohol 275.4 on admission at 1306 141.6. ASSESSMENT: 1. GENERALIZED WEAKNESS WITH ALTERED MENTAL STATUS RELATED TO ALCOHOL ABUSE. 2. ALCOHOL ABUSE AND DETOX. 3. ANXIETY AND DEPRESSION. 4. ALCOHOLISM. 5. CHRONIC BACK PAIN. 6. ELEVATED LIVER FUNCTION TEST. 7. HISTORY OF ATRIAL FIBRILLATION. 8. HISTORY OF CHRONIC KIDNEY DISEASE. 9. HISTORY OF NEUROGENIC BLADDER. 10. HYPERTENSION. 11. HYPERLIPIDEMIA. PLAN: 1. Admit the patient inpatient with IV fluids and plans for detox. 2. Ativan will be ordered. The patient will be placed on telemetry and neurochecks and again IV fluids. 3. Further orders and recommendations per Dr. Marroquin. TIME SPENT: GREATER THAN 65 MINUTES MTDD
--- NOTE | 2018-12-25 08:47 | DS ---
DATE OF SERVICE: 12/12/18 DISCHARGE DIAGNOSES: 1. GENERALIZED WEAKNESS WITH ALCOHOL INTOXICATION 2. ALCOHOL ABUSE WITH ALCOHOL DETOX 3. ANXIETY AND DEPRESSION 4. ELEVATED LIVER FUNCTION 5. NEUROGENIC BLADDER 6. CHRONIC BACK PAIN HISTORY OF PRESENT ILLNESS AND HOSPITAL COURSE: Mr. St is a 58-year-old patient who has a history of alcohol use. He presented to the emergency department with weakness and ongoing alcohol abuse. He had labs and testing done during admission. His liver function tests were elevated. His hemoglobin 13.3 and hematocrit 38.7. His AST was 273.1, ALT was 153.7, amylase 142.2. His renal ultrasound did reveal increased cortical echogenicity of bilateral kidney compatible with medical renal disease. No hydronephrosis. No renal masses. A severely distended bladder and mildly diseased bladder wall thickening consistent with history of neurogenic bladder. A CT of the head was performed due to the weakness and altered mental status. It showed no acute intracranial abnormality. It did show chronic ischemic disease with chronic encephalomalacia of right parietal region that appears subcortical. The patient was given Ativan to help with detox and IV fluids to help with hydration. He was very shaky during exam. His lungs were clear on exam with an expiratory wheeze. Heart is regular. Abdomen is soft. Arms were shaky again. His daughter was at the bedside and discussion regarding discharge plan was done with the daughter. It was explained to her that he did not need to take the Xanax while taking the Ativan prescription and that the Ativan was given to help with detox and that he was to completely sustain from drinking alcohol. Both the patient and the daughter verbalized understanding of this. They both also verbalized understanding the Schedule A and appointment CRUZITO with Anika Arredondo, his primary care provider. They also understand that he was not to drive while taking either the Ativan or the Xanax as they can alter his ability to drive safely. Discharge diet is regular diet. Discharge activity level is as tolerated with safety precautions, followup appointment as recommended to see his primary care provider, Anika Arredondo as soon as possible. Further orders and recommendations per Dr. Marroquin. Vital signs at discharge: Temperature 98.3, pulse rate 72, blood pressure 155/ 87. 02 sat 98% on room air. Pulse rate 72. Telemetry sinus rhythm at 83. TIME SPENT: GREATER THAN 30 MINUTES MTDD
--- NOTE | 2019-01-02 14:05 | PN ---
DATE OF SERVICE: 12/11/18 - ADMISSION NOTE SUBJECTIVE: Emergency room physician, Dr. Franz did call me with regards to Mr. St seeking admission to the hospital. The patient had been weak according to the patient as well as relatives and had been ongoing for the last 7 days as well as slurred speech. He presented to the emergency room 8:27 a.m. today. The patient had been using alcohol chronically. He claimed to have drank one can of beer this morning however his blood alcohol level is much higher than what would be a can. He did tell me that he had only a can of beer this morning. His plasma alcohol level was 275.4 mg%. One can of beer will not get there. He told me that he was drinking also the night before and had been drinking for a long time. He was admitted in April, because of chest tightness. The patient, also during that time, admitted to using alcohol heavily as well as smoking. Coagulation profile was normal. Serum amylase slightly elevated at 125, lipase 25 normal. Liver enzymes were elevated, AST 86, ALT 78. Hepatitis panel was then tested and all were negative. Serum alcohol level was less than 10 mg%. Stress test is negative for ischemia. Left ventricular ejection fraction is normal 62%. The patient was admitted two more times after the 2016, diagnosis hyponatremia and UTI. Again hyponatremia and urinary retention. AST was elevated during that time. The patient is alert and responsive. He follows verbal commands. Lungs - breath sounds are markedly diminished on both sides with inspiratory plus expiratory wheeze, more on the lower half. Heart is audible and regular with good tones, no murmurs. Abdomen is flat, soft with no signficant tenderness in epigastric or subcostal areas. Bowel sounds are active. Lower extremities symmetrical and equal with no significant edema. ASSESSMENT: 1. Weakness probably secondary to continued alcohol use and abuse. 2. 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 Hemoglobin 13.3, hematocrit 38.7, MCV 97.2, MCH 33.4. 3. He does have acute alcoholic hepatitis as well as acute alcoholic pancreatitis. PLAN: 1. We will get another blood alcohol level. 2. Once the alcohol is decreased much lower this patient will be given Ativan p.o. 1 gm every 8 hours. This patient denied any episode of DTs in the past. He told me that he did stop smoking and drinking for about one year. Serum ammonia is normal. Need to do an ultrasound of the kidneys since this patient had renal masses. He had been followed by the urologist in [place]. I am not certain as to when was the last time he had been there. I talked to Mr. St in the presence of Tammy Wadsworth R.N. I told Mr. St that if he continues to drink alcohol that I would not be able to help him with his weakness. The weakness may be secondary to abuse of alcohol and the poor oral intake of food. I did tell him that his liver has been irritated because of the alcohol and it is worse now than it was two years ago. His pancreas is also irritated. The patient's prognosis is poor. The drowsiness may be partly due to the alcohol and did tell him again at the end of the conversation that I would not be able to change the trajectory of his health if he does not stop the drinking and maybe also smoking. MTDD
== END 2018-12-12 16:43 | disposition home or self-care (01) ==
LOC: ED 08:26 → MEDSURG B 10:26
PROVIDERS: ADMIT General Practice; ATTEND General Practice
DX: R53.81 Other malaise; M54.9 Dorsalgia, unspecified; N31.9 Neuromuscular dysfunction of bladder, unspecified; F10.20 Alcohol dependence, uncomplicated; K70.10 Alcoholic hepatitis without ascites; I10 Essential (primary) hypertension; F10.10 Alcohol abuse, uncomplicated; K85.20 Alcohol induced acute pancreatitis without necrosis or infection; R51 Headache; F41.8 Other specified anxiety disorders; E78.5 Hyperlipidemia, unspecified; E53.8 Deficiency of other specified B group vitamins